=== PATIENT | female | born 1970 | race Caucasian/White ===

== ENCOUNTER 2019-09-03 08:48 | Emergency (ER) | payer OTHER, SELFPAY ==
[2019-09-03 08:54] VITALS: BP 195/103; PULSE 95; RESP 14; TEMP 37.9; O2SAT 99
--- NOTE | 2019-09-03 09:10 | ED.URI ---
HPI - URI/Sore Throat General Chief Complaint: Upper Respiratory Infection Stated Complaint: sinus infection Time Seen by Provider: 09/03/19 09:10 Source: patient and RN notes reviewed Mode of arrival: ambulatory Limitations: no limitations History of Present Illness HPI Narrative: This is a 49 years old female presented office for evaluation of possible sinus infection. Symptoms began 10-day+ with worsening for the last 3-day. Symptoms include head congestion, ear pain, sore throat, and cough. Denies fever at home however she felt achy and malaise. Admits to smoking. Related Data Home Medications Medication Instructions Recorded Confirmed duloxetine 60 mg PO DAILY 09/03/19 09/03/19 nabumetone 75 mg PO DAILY 09/03/19 09/03/19 trazodone 100 mg PO DAILY 09/03/19 09/03/19 Allergies Allergy/AdvReac Type Severity Reaction Status Date / Time cephalexin Allergy Anaphylaxis Verified 02/16/19 10:59 Review of Systems Review of Systems: Narrative: CONSTITUTIONAL: Denies fever, chills EYES: Denies visual changes ENT: Reports head congestion, sore throat, otalgia. CARDIOVASCULAR: Denies chest pain RESPIRATORY: Denies dyspnea, wheezing. Reports cough GASTROINTESTINAL: Denies abdominal pain, nausea, vomiting GENITOURINARY: Denies urinary symptoms SKIN: Denies rash MUSCULOSKELETAL: Denies acute back pain NEUROLOGIC: Denies lightheaded PMFSH Past Medical History Medical History Anxiety and depression Fracture of left hand Osteoarthritis Surgical History Surgical History S/P rotator cuff repair Social History Social History Smoking packs per day: 0.5 Smoking cigarettes per day: 10.0 Years smoked: 30 Smoking pack-years: 15.00 Smoking status: Current every day smoker Tobacco type: cigarettes Comments At time of signature, I agree with nursing past medical, surgical, social and family history. There is no relevant family history pertinent to the presenting complaint. Exam Narrative: Exam Narrative: GENERAL: This is a well-nourished, well-developed patient, in no apparent distress. EYES: Sclera clear/white. Vision is grossly intact. EARS: External ears normal, auditory canals clear and without drainage, TMs normal without perforation. Hearing grossly intact. NOSE: External nose normal with no obvious nasal discharge, nares without redness, no rhinorrhea. THROAT: Mucous membranes moist, posterior pharynx clear. Sinus tenderness noted. NECK: Neck supple, non-tender with lymphadenopathy, masses or thyromegaly. CARDIOVASCULAR: Regular rate and rhythm without murmurs, gallops, or rubs. RESPIRATORY: Clear to auscultation. Breath sounds equal bilaterally. No wheezes, rales, or rhonchi. GASTROINTESTINAL: Abdomen soft, non-tender, nondistended. Bowel sounds are active. No hepato-splenomegaly, or palpable masses. No guarding. SKIN: warm, intact with no suspicious lesions or rash, good texture and turgor. NEURO: awake, alert, and oriented to person, place and time. There were no obvious focal neurologic abnormalities. Steady gait [place] Coma Scale Eye Opening: Spontaneous 4 [place] Coma Scale Motor: Obeys Commands 6 [place] Coma Scale Verbal: Oriented 5 Course Vital Signs Vital signs: Vital Signs Temperature 100.3 F H 09/03/19 08:54 Pulse Rate 95 09/03/19 08:54 Respiratory Rate 14 09/03/19 08:54 Blood Pressure 195/103 H 09/03/19 08:54 Pulse Oximetry 99 09/03/19 08:54 Temperature 100.3 F H 09/03/19 08:54 Pulse Rate 95 09/03/19 08:54 Respiratory Rate 14 09/03/19 08:54 Blood Pressure 195/103 H 09/03/19 08:54 Pulse Oximetry 99 09/03/19 08:54 MDM - URI/Sore Throat MDM Narrative Medical decision making narrative: Discharge instructions reviewed with patient, as well as provided in writing per nursing staff.
[2019-09-03 09:20] VITALS: BP 170/95
== END 2019-09-03 09:20 | disposition home or self-care (01) ==
PROVIDERS: Emergency Provider Nurse Practitioner; PCP Internal Medicine
DX: J00 Acute nasopharyngitis [common cold] (principal); J01.90 Acute sinusitis, unspecified; I10 Essential (primary) hypertension; F17.210 Nicotine dependence, cigarettes, uncomplicated
CPT/HCPCS: 99213; G0463

== ENCOUNTER 2022-08-29 11:03 | Emergency (ER) | payer OTHER, SELFPAY ==
[2022-08-29 11:14] VITALS: BP 171/77; PULSE 103; RESP 16; TEMP 37; O2SAT 99
--- NOTE | 2022-08-29 11:20 | ED.SKABFB ---
HPI - Skin/Abscess/Foreign Bdy General Chief complaint: Skin/Abscess/Foreign Body Stated complaint: Skin Sore/Insect Bite/Tick Source: patient and RN notes reviewed History of Present Illness HPI narrative: 52 yo F presents to ED with complaints of a tick on her right shoulder that she and her friend could not get off. Pt first noticed this tick last night. Pt presumes she may have gotten it this past weekend [place]. Denies any other symptoms including fever, chills, or vomiting. Related Data Home Medications Medication Instructions Recorded Confirmed duloxetine 60 mg capsule,delayed 60 mg PO DAILY 09/03/19 09/03/19 release nabumetone 750 mg tablet 75 mg PO DAILY 09/03/19 09/03/19 trazodone 100 mg tablet 100 mg PO DAILY 09/03/19 09/03/19 Allergies Allergy/AdvReac Type Severity Reaction Status Date / Time cephalexin Allergy Anaphylaxis Verified 02/16/19 10:59 meloxicam Allergy Unknown Verified 08/29/22 11:14 Review of Systems Review of Systems: CONSTITUTIONAL: Denies fever, chills, or sweats. EYES: Denies visual changes, redness, or discharge. ENT: Denies otalgia and sore throat CARDIOVASCULAR: Denies chest pain, palpitations, or edema. RESPIRATORY: Denies cough or dyspnea. GASTROINTESTINAL: Denies abdominal pain, nausea, vomiting, or diarrhea. GENITOURINARY: Denies dysuria or hematuria. SKIN: tick to right shoulder MUSCULOSKELETAL: Denies back pain, joint pain, or myalgia. NEUROLOGIC: Denies headache, numbness, or weakness. Pertinent positives per HPI. [facility] Past Medical History Medical History (Updated 08/29/22 @ 11:30 by Maritza Mcfadden APRN) Anxiety and depression Fracture of left hand Osteoarthritis Surgical History Surgical History S/P rotator cuff repair Social History Social History Smoking packs per day: 0.5 Smoking cigarettes per day: 10.0 Years smoked: 30 Smoking pack-years: 15.00 Smoking status: Current every day smoker Tobacco type: cigarettes Living arrangements: with family Comments At the time of my signature, I reviewed and agree with the nursing past medical, surgical, social, and family history. There is no relevant family history pertinent to the patient complaint. Exam Narrative: GENERAL: This is a well-nourished, well-developed patient, in no apparent distress. HEAD: normocephalic, atraumatic. EYES: Sclera clear/white. Vision is grossly intact. EARS: External ears normal, auditory canals clear and without drainage. Hearing grossly intact. NOSE: External nose normal with no obvious nasal discharge, nares without redness, no rhinorrhea. THROAT: Mucous membranes moist, posterior pharynx clear. NECK: Neck supple, non-tender without lymphadenopathy, masses or thyromegaly. CARDIOVASCULAR: Regular rate RESPIRATORY: No respiratory distress GASTROINTESTINAL: Abdomen soft, non-tender, nondistended. Bowel sounds are active. No hepato-splenomegaly, or palpable masses. No guarding. SKIN: tick noted to right superior shoulder NEURO: awake, alert, and oriented to person, place and time. There were no obvious focal neurologic abnormalities. EXTREMITIES: No clubbing, cyanosis, or edema. No joint tenderness, effusion, or edema noted. Course Course Level of Care: Express Care Visit Vital Signs Vital signs: Vital Signs Temperature 98.6 F 08/29/22 11:14 Pulse Rate 103 H 08/29/22 11:14 Respiratory Rate 16 08/29/22 11:14 Blood Pressure 171/77 H 08/29/22 11:14 Pulse Oximetry 99 08/29/22 11:14 Oxygen Delivery Room Air 08/29/22 11:14 Temperature 98.6 F 08/29/22 11:14 Pulse Rate 103 H 08/29/22 11:14 Respiratory Rate 16 08/29/22 11:14 Blood Pressure 171/77 H 08/29/22 11:14 Pulse Oximetry 99 08/29/22 11:14 Oxygen Delivery Room Air 08/29/22 11:14 Reviewed MDM - Skin/Abscess/Foreign Bdy
== END 2022-08-29 11:32 | disposition home or self-care (01) ==
PROVIDERS: Emergency Provider Nurse Practitioner Family; PCP Internal Medicine
DX: S40.261A Insect bite (nonvenomous) of right shoulder, initial encounter (principal); W57.XXXA Bitten or stung by nonvenomous insect and other nonvenomous arthropods, initial encounter; M19.90 Unspecified osteoarthritis, unspecified site; F17.210 Nicotine dependence, cigarettes, uncomplicated; F32.A Depression, unspecified
CPT/HCPCS: 99212; G0463

== ENCOUNTER 2023-02-16 14:41 | Emergency (ER) | payer OTHER, SELFPAY ==
[2023-02-16 14:44] VITALS: BP 166/85; PULSE 101; RESP 20; TEMP 36.7; O2SAT 97
--- NOTE | 2023-02-16 14:46 | ED.WOUNDLAC ---
HPI - Wound/Laceration General Chief Complaint: Wound/Laceration Stated Complaint: needs tetnus shot Time Seen by Provider: 02/16/23 14:55 Source: patient and RN notes reviewed Mode of arrival: ambulatory Limitations: no limitations History of Present Illness HPI narrative: 52-year-old female presents with concern for tetanus shot after a puncture wound. Reports on Friday she had a puncture wound on the palmar aspect of her right hand from a nail. Reports she has been cleaning it. She denies any redness, warmth, swelling, drainage. Reports she is not up-to-date on her tetanus vaccination. She denies decreased strength, sensation, range of motion in the hand or digits Related Data Home Medications Medication Instructions Recorded Confirmed duloxetine 60 mg capsule,delayed 60 mg PO DAILY 09/03/19 02/16/23 release losartan 100 1 tablet PO DAILY 02/16/23 02/16/23 mg-hydrochlorothiazide 25 mg tablet metformin 500 mg tablet 500 mg PO DAILY 02/16/23 02/16/23 Allergies Allergy/AdvReac Type Severity Reaction Status Date / Time cephalexin Allergy Anaphylaxis Verified 02/16/23 15:00 meloxicam Allergy Unknown Verified 02/16/23 15:00 Review of Systems Review of Systems: CONSTITUTIONAL: Denies malaise, chills, sweats, or fever. SKIN: Reports puncture wound to the right hand MUSCULOSKELETAL: Denies muscle skeletal pain, decreased musculoskeletal function NEUROLOGIC: Denies numbness, weakness All systems reviewed & are unremarkable except as noted in HPI and below PMFSH Past Medical History Medical History (Updated 02/16/23 @ 15:01 by Anabela Santiago NP) Anxiety and depression Fracture of left hand Osteoarthritis Surgical History Surgical History S/P rotator cuff repair Social History Social History Smoking packs per day: 0.5 Smoking cigarettes per day: 10.0 Years smoked: 30 Smoking pack-years: 15.00 Smoking status: Current every day smoker Tobacco type: cigarettes Living arrangements: with family Comments At time of signature, agree with nursing past medical, surgical, social and family history. There is no relevant family history pertinent to the presenting complaint Exam Narrative: GENERAL: Well-appearing, well-nourished, and in no acute distress. HEAD: Normocephalic EYES: PERRLA, conjunctivae clear NECK: Supple. CHEST: Speaks in full sentences. No respiratory distress. HEART: Regular rate and rhythm. Normal and equal peripheral pulses. EXTREMITIES: Right hand and digits of hand have normal strength and sensation. 5/5 strength with digit flexion, extension. Range of motion normal. No tenderness. Skin intact. Normal sensation of each side of finger. Normal thumb opposition. Good capillary refill and radial pulse. Distal capillary refill less than 3 seconds. Patient is right/left hand dominant SKIN: Warn, dry, intact, pink. Scabbed puncture wound noted the palmar aspect of the right hand beneath digit two without surrounding erythema, edema, warmth, induration NEURO: Alert and oriented x3. PSYCH: Normal mood and affect Course Course Emergency Course: Patient is aware of diagnosis, understands and agrees to treatment plan. Anticipatory guidance given. Patient agrees to follow-up as directed and is aware of reasons to seek care at the emergency department. Portions of this record may have been created with voice recognition software Level of Care: Express Care Visit Vital Signs Vital signs: Reviewed. MDM - Wound/Laceration MDM Narrative Medical decision making narrative: Wound explored for foreign body and copious irrigation provided with no evidence of FB. Discussed the potential of retained foreign body with the patient and signs/symptoms that should prompt the patient to immediately go to the ED for reevaluation. The laceration was identified to be [XXX] cm in
[2023-02-16] MEDS: TETANUS,DIPHTHERIA,AC PERTUSSIS ADULT (0.5 ML) BOOSTRIX IM (14:56)
[2023-02-16 15:01] VITALS: BP 166/85; PULSE 101; RESP 20; TEMP 36.7; O2SAT 97
== END 2023-02-16 15:16 | disposition home or self-care (01) ==
PROVIDERS: Emergency Provider Nurse Practitioner; PCP Internal Medicine
DX: S61.431A Puncture wound without foreign body of right hand, initial encounter (principal); W45.0XXA Nail entering through skin, initial encounter; Z23 Encounter for immunization; M19.90 Unspecified osteoarthritis, unspecified site; F17.210 Nicotine dependence, cigarettes, uncomplicated
CPT/HCPCS: 90715; 99212; G0463

== ENCOUNTER 2023-11-26 13:47 | Emergency (ER) | payer OTHER, SELFPAY ==
[2023-11-26 13:57] VITALS: BP 132/76; PULSE 103; RESP 16; TEMP 36.8; O2SAT 99
--- NOTE | 2023-11-26 14:36 | ED.GENADULT ---
HPI - General Adult General Chief complaint: Upper Respiratory Infection Stated complaint: sinus infection/bronchitis Time Seen by Provider: 11/26/23 14:36 Source: patient, RN notes reviewed and old records reviewed Mode of arrival: ambulatory Limitations: no limitations History of Present Illness HPI narrative: 53-year-old female to Express Care for complaint of sore throat, sinus pressure and pain, bilateral ear fullness, hoarseness for 10 days. Patient endorsing discomfort at 6/10 currently. Patient attempted to treat with ibuprofen and Tylenol with mild relief. Patient denies shortness of breath, difficulty swallowing, headache, fever, GI complaints , pertinent medical history. Patient able to tolerate fluids by mouth. Respirations even and nonlabored. Patient in no acute distress. Related Data Home Medications Medication Instructions Recorded Confirmed duloxetine 60 mg capsule,delayed 60 mg PO DAILY 09/03/19 11/26/23 release losartan 100 1 tablet PO DAILY 02/16/23 11/26/23 mg-hydrochlorothiazide 25 mg tablet Allergies Allergy/AdvReac Type Severity Reaction Status Date / Time cephalexin Allergy Anaphylaxis Verified 11/26/23 14:19 meloxicam Allergy Unknown Verified 11/26/23 14:19 Review of Systems Review of Systems: All systems reviewed & are unremarkable except as noted in HPI and below Constitutional: Constitutional: Reports as per HPI, Denies fever(s) and Denies headache(s) Eyes: Eyes: Reports no additional eye complaints ENT: Reports as per HPI, Reports otalgia ( Bilateral fullness), Reports hoarseness, Reports sinus pain, Reports sinus pressure and Reports sore throat Cardiovascular: Cardiovascular: Reports no additional cardiovascular complaints, Denies chest pain and Denies dyspnea Respiratory: Respiratory: Reports no additional respiratory complaints, Denies cough and Denies dyspnea Musculoskeletal: Musculoskeletal: Reports no additional musculoskeletal complaints Neurologic: Reports system reviewed and no additional complaints, except as documented Psychiatric: Psychiatric: Reports no additional psychiatric complaints PMFSH Past Medical History Medical History Anxiety and depression Fracture of left hand Osteoarthritis Surgical History Surgical History S/P rotator cuff repair Social History Social History Smoking packs per day: 0.5 Smoking cigarettes per day: 10.0 Years smoked: 30 Smoking pack-years: 15.00 Smoking status: Current every day smoker Tobacco type: cigarettes Living arrangements: with family Comments At the time of my signature, I reviewed and agree with the nursing past medical, surgical, social, and family history. There is no relevant family history pertinent to the patient complaint. Exam Const: General: cooperative, no acute distress, well developed, alert, ill appearing acutely, tired appearing, uncomfortable, well groomed and well nourished Nutritional Appearance: well nourished Orientation/consciousness: patient oriented x3 Limitations: no limitations HENMT: Head: normal to inspection Ears: external ears normal and TM abnormal erythematous bilateral, with fluid behind the TM bilateral ( purulent) and with loss of landmarks bilateral Face/Nose/Sinus: Normal external nose present, Abnormal mucous membranes and turbinates present boggy and erythematous, normal facial exam, No erythema and No edema Face and sinus: normal facial exam, no erythema and no edema Mouth: Yes Normal oral and palatal mucosa present Eyes: General: appearance normal, both eyes and all related structures Neck: Neck: normal visual inspection, full ROM and no meningeal signs Lymphatic: lymphadenopathy Chest: Chest palpation & inspection: normal inspection of the chest Resp: Effort & Ins
== END 2023-11-26 14:45 | disposition home or self-care (01) ==
PROVIDERS: Emergency Provider Nurse Practitioner Family; PCP Internal Medicine
DX: J32.9 Chronic sinusitis, unspecified (principal); F17.210 Nicotine dependence, cigarettes, uncomplicated; M19.90 Unspecified osteoarthritis, unspecified site
CPT/HCPCS: 99213; G0463

== ENCOUNTER 2024-04-29 16:46 | Emergency (ER) | payer OTHER, SELFPAY ==
--- OUTSIDE RECORDS SUMMARY | 2024-04-29 16:48 | XMS_ITS | Patient Health Summary ---
Author Organization [facility] [employer] Address [address] [place] [address] Care Team Providers Care Powerbuilder Name Role Phone Charlie Abreu MD Primary Care Provider [phone] Note from [facility] [place],non-owned Affiliates and Associated Physician Practices is amultiple site organization consisting of ambulatory clinics and hospital sitesin [place], [place], [place]. This disclosure is being madepursuant to the Care Everywhere program and may not contain all information available regarding this patient. Last updated 17.[facility] [employer] Allergies * Allergy(Itching,Rash) -Medium Criticality * Uncaria Tomentosa, Cats Claw(Other) -Low Criticality * Cephalexin(Anaphylaxis) -High Criticality * Meloxicam(Other,Palpitations) -High Criticality * Pollen Extract(Itching) -Low Criticality Medications * Be aware that medications may not be up to date on this document. Alwaysverify current medications with the patient. 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 Essential (primary) hypertension 10/04/2014 Polyosteoarthritis 10/04/2014 Major depressive disorder, single episode 2014 Social History Tobacco Use Types Packs/Day Years Used Date Smoking Tobacco: Every Day Cigarettes 0.5 30 Smokeless Tobacco: Never Alcohol Use Standard Drinks/Week Comments No 0 (1 standard drink = 0.6 oz pur e alcohol) Sex and Gender Information Value Date Recorded Sex Assigned at Not on file Gender Identity Not on file Sexual Orientation Not on file Last Filed Vital Signs Vital Sign Reading Time Taken Comments Blood Pressure 190/90 04/28/2019 12:55 PM [employer]IM 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 Pulse 100 04/28/2019 12:55 PM BRIM 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 Temperature 36.4 ??C (97.5 ??F) 04/28/2019 12:[address] Respiratory Rate 16 05/18/2018 1:58 PM [employer] 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 Oxygen Saturation 100% 05/18/2018 1:58 PM BR[employer] 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 Inhaled Oxygen Concentration - - Weight 73 kg (161 lb) 04/28/2019 12:55 PM BRIM 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 Height 166.4 cm (5' 5.5 ) 04/28/2019 12:55 PM CS T Body Mass Index 26.38 04/28/2019 12:55 PM [employer]IM 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 Procedures * XR SHOULDER RIGHT 2VW OR MORE(Performed 04/20/2018) Performed for Right shoulder pain, unspecified chronicity * XR PELVIS W LEFT HIP 2VW(Performed 10/14/2014) * XR LUMBAR SPINE 2 OR 3VW(Performed 10/14/2014) * XR CERVICAL SPINE 2 OR 3VW(Performed 10/14/2014) * XR SHOULDER LEFT 2VW OR MORE(Performed 10/14/2014) * XR SHOULDER RIGHT 2VW OR MORE(Performed 10/14/2014) * XR PELVIS W RIGHT HIP 2VW(Performed 10/14/2014) * CYCLIC CITRULLINATED PEPTIDE(CCP) AB IGG(Performed 10/14/2014) * TSH(Performed 10/14/2014) * C-REACTIVE PROTEIN(Performed 10/14/2014) * RHEUMATOID FACTOR BLOOD QUANTITATIVE(Performed 10/14/2014) * COMPREHENSIVE METABOLIC PANEL(Performed 10/14/2014) * ERYTHROCYTE SEDIMENTATION RATE(Performed 10/14/2014) * CBC W AUTO DIFFERENTIAL(Performed 10/14/2014) * CBC W AUTO DIFFERENTIAL(Performed 10/14/2014) Results * XR SHOULDER RIGHT 2VW OR MORE (04/20/2018 10:57 AM BRIM 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) Only the most recent of2 resultswithin the time period is included. Anatomical Region Laterality Modality Upper Extremity Radiographic [place] ging 04/20/2018 12:0 3 PM BRIM 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 Impressions 04/20/2018 12:05 PM BRIM 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 IMPRESSION: Degenerative changes. This report was electronically signed by RAD UMANA MD ??on 04/20/2018 12:05 PM . Narrative 04/20/2018 12:05 PM BRIM 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 Exam: ??XR SHOULDER RIGHT 3 view History: ??Pain Comparison: 10/14/2014 Findings: No acute fracture or dislocation is seen. Mild degenerative change is noted at the acromioclavicular and glenohumeral joints. The contour of the distal clavicle suggests partial resection. There is bony irregularity of the greater tuberosity with several lucencies suggesting rotator cuff tendinopathy and/or prior surgery. Procedure Note Rad Umana MD - 04/20/2018 Exam: XR SHOULDER RIGHT 3 view History: Pain Comparison: 10/14/2014 Findings: No acute fracture or dislocation is seen. Mild degenerative change is noted at the acromioclavicular and glenohumeral joints. The contour ofthe distal clavicle suggests partial resection. There is bony irregularityof the greater tuberosity with several lucencies suggesting rotator cuff tendinopathy and/or prior surgery. IMPRESSION: Degenerative changes. This report was electronically signed by RAD UMANA MD on04/20/2018 12:05 PM . Floyd Reese III, MD DIAGNOSTIC IM AGING ORDERABLES * XR PELVIS W RIGHT HIP 2VW (10/14/2014 3:04 PM CDT) Anatomical Region Laterality Modality Other Impressions 10/14/2014 4:15 PM CDT Impression: 1. Right shoulder demonstrates mild osteoarthritis, and changes suggestive of chronic rotator cuff tendinopathy. 2. Left shoulder demonstrates minimal arthritis. 3. Right and left hip x-rays demonstrate no significant arthritis. Enthesopathy is noted at both greater trochanters. 4. Cervical spine x-rays demonstrate mild to moderate degenerative disc disease. 5. Lumbar spine x-rays demonstrate mild degenerative disc disease. This report was electronically signed by RAD UMANA MD ??on 10/14/2014 4:15 PM . Narrative 10/14/2014 4:15 PM CDT Exam: 1. XR SPINE LUMBAR 2 OR 3 VW, 2. XR SPINE CERVICAL 2 OR 3 VIEWS, 3. XR SHOULDER LEFT 2 VW MIN, 4. XR SHOULDER RIGHT 2 VW MIN, 5. XR HIP LEFT 2+ VW, 6. XR HIP RIGHT 2+ VW History: ??Joint pain Comparison: None available. Findings: Right shoulder: There is no acute fracture. There is mild glenohumeral and acromioclavicular osteoarthritis. There is moderate bony irregularity of the greater tuberosity which may reflect chronic rotator cuff tendinopathy. No erosions are seen. Bone mineralization is normal. Left shoulder: There is no acute fracture. The joint spaces are normal. There are small cysts along the anterior margin of the glenoid. There is no significant acromioclavicular arthritis. No definite erosions are seen. Bone mineralization is normal. Right hip: There is no acute fracture or dislocation. The joint space is normal. There is no significant arthritis. No erosions are seen. Bone mineralization is normal. There is moderate enthesopathy at the greater trochanter. The right sacroiliac joint and pubic symphysis are intact. Left hip: There is no acute fracture or dislocation. The joint space is normal. There is a tiny os acetabula. No erosions are seen. Bone mineralization is normal. There is mild to moderate greater trochanter enthesopathy. Left sacroiliac joint is intact. Cervical spine: There is reversal of the cervical lordosis in the lower cervical spine. No fracture or subluxation is present. There is mild degenerative disc disease at C4-5, moderate degenerative disc disease at C5-6, and mild degenerative disc disease at C6-7. The prevertebral soft tissues are normal. Bone mineralization is normal. Lumbar spine: The lumbar lordosis is normal. There is no fracture or subluxation. The intervertebral disc spaces are normal. There are scattered small anterior osteophytes, and lateral osteophytes versus non-marginal syndesmophytes at several levels. The facets appear normal. Focal calcification anterior to the L3 vertebral body could represent atherosclerotic aortic calcification, or other nonspecific soft tissue calcification. Bone mineralization is normal. Procedure Note Rad Umana MD - 06/28/2017 Exam: 1. XR SPINE LUMBAR 2 OR 3 VW, 2. XR SPINE CERVICAL 2 OR 3 VIEWS, 3. XR SHOULDER LEFT 2 VW MIN, 4. XR SHOULDER RIGHT 2 VW MIN, 5. XR HIP LEFT 2+ VW, 6. XR HIP RIGHT 2+ VW History: Joint pain Comparison: None available. Findings: Right shoulder: There is no acute fracture. There is mild glenohumeral andacromioclavicular osteoarthritis. There is moderate bony irregularity ofthe greater tuberosity which may reflect chronic rotator cufftendinopathy. No erosions are seen. Bone mineralization is normal. Left shoulder: There is no acute fracture. The joint spaces are normal. There are smallcysts along the anterior margin of the glenoid. There is no significantacromioclavicular arthritis. No definite erosions are seen. Bonemineralization is normal. Right hip: There is no acute fracture or dislocation. The joint space is normal.There is no significant arthritis. No erosions are seen. Bonemineralization is normal. There is moderate enthesopathy at the greatertrochanter. The right sacroiliac joint and pubic symphysis are intact. Left hip: There is no acute fracture or dislocation. The joint space is normal.There is a tiny os acetabula. No erosions are seen. Bone mineralization isnormal. There is mild to moderate greater trochanter enthesopathy. Leftsacroiliac joint is intact. Cervical spine: There is reversal of the cervical lordosis in the lower cervical spine. Nofracture or subluxation is present. There is mild degenerative discdisease at C4-5, moderate degenerative disc disease at C5-6, and milddegenerative disc disease at C6-7. The prevertebral soft tissues are normal. Bone mineralization is normal. Lumbar spine: The lumbar lordosis is normal. There is no fracture or subluxation. Theintervertebral disc spaces are normal. There are scattered small anteriorosteophytes, and lateral osteophytes versus non-marginal syndesmophytes atseveral levels. The facets appear normal. Focal calcification anterior to the L3 vertebral body couldrepresent atherosclerotic aortic calcification, or other nonspecific softtissue calcification. Bone mineralization is normal. IMPRESSION Impression: 1. Right shoulder demonstrates mild osteoarthritis, and changes suggestiveof chronic rotator cuff tendinopathy. 2. Left shoulder demonstrates minimal arthritis. 3. Right and left hip x-rays demonstrate no significant arthritis.Enthesopathy is noted at both greater trochanters. 4. Cervical spine x-rays demonstrate mild to moderate degenerative discdisease. 5. Lumbar spine x-rays demonstrate mild degenerative disc disease. This report was electronically signed by RAD UMANA MD on 10/14/20144:15 PM . Sugar Rodriguez MD DIAGNOSTIC IMAGING ORDERABLES * XR PELVIS W LEFT HIP 2VW (10/14/2014 3:04 PM CDT) Anatomical Region Laterality Modality Other Impressions 10/14/2014 4:15 PM CDT Impression: 1. Right shoulder demonstrates mild osteoarthritis, and changes suggestive of chronic rotator cuff tendinopathy. 2. Left shoulder demonstrates minimal arthritis. 3. Right and left hip x-rays demonstrate no significant arthritis. Enthesopathy is noted at both greater trochanters. 4. Cervical spine x-rays demonstrate mild to moderate degenerative disc disease. 5. Lumbar spine x-rays demonstrate mild degenerative disc disease. This report was electronically signed by RAD UMANA MD ??on 10/14/2014 4:15 PM . Narrative 10/14/2014 4:15 PM CDT Exam: 1. XR SPINE LUMBAR 2 OR 3 VW, 2. XR SPINE CERVICAL 2 OR 3 VIEWS, 3. XR SHOULDER LEFT 2 VW MIN, 4. XR SHOULDER RIGHT 2 VW MIN, 5. XR HIP LEFT 2+ VW, 6. XR HIP RIGHT 2+ VW History: ??Joint pain Comparison: None available. Findings: Right shoulder: There is no acute fracture. There is mild glenohumeral and acromioclavicular osteoarthritis. There is moderate bony irregularity of the greater tuberosity which may reflect chronic rotator cuff tendinopathy. No erosions are seen. Bone mineralization is normal. Left shoulder: There is no acute fracture. The joint spaces are normal. There are small cysts along the anterior margin of the glenoid. There is no significant acromioclavicular arthritis. No definite erosions are seen. Bone mineralization is normal. Right hip: There is no acute fracture or dislocation. The joint space is normal. There is no significant arthritis. No erosions are seen. Bone mineralization is normal. There is moderate enthesopathy at the greater trochanter. The right sacroiliac joint and pubic symphysis are intact. Left hip: There is no acute fracture or dislocation. The joint space is normal. There is a tiny os acetabula. No erosions are seen. Bone mineralization is normal. There is mild to moderate greater trochanter enthesopathy. Left sacroiliac joint is intact. Cervical spine: There is reversal of the cervical lordosis in the lower cervical spine. No fracture or subluxation is present. There is mild degenerative disc disease at C4-5, moderate degenerative disc disease at C5-6, and mild degenerative disc disease at C6-7. The prevertebral soft tissues are normal. Bone mineralization is normal. Lumbar spine: The lumbar lordosis is normal. There is no fracture or subluxation. The intervertebral disc spaces are normal. There are scattered small anterior osteophytes, and lateral osteophytes versus non-marginal syndesmophytes at several levels. The facets appear normal. Focal calcification anterior to the L3 vertebral body could represent atherosclerotic aortic calcification, or other nonspecific soft tissue calcification. Bone mineralization is normal. Procedure Note Rad Umana MD - 06/28/2017 Exam: 1. XR SPINE LUMBAR 2 OR 3 VW, 2. XR SPINE CERVICAL 2 OR 3 VIEWS, 3. XR SHOULDER LEFT 2 VW MIN, 4. XR SHOULDER RIGHT 2 VW MIN, 5. XR HIP LEFT 2+ VW, 6. XR HIP RIGHT 2+ VW History: Joint pain Comparison: None available. Findings: Right shoulder: There is no acute fracture. There is mild glenohumeral andacromioclavicular osteoarthritis. There is moderate bony irregularity ofthe greater tuberosity which may reflect chronic rotator cufftendinopathy. No erosions are seen. Bone mineralization is normal. Left shoulder: There is no acute fracture. The joint spaces are normal. There are smallcysts along the anterior margin of the glenoid. There is no significantacromioclavicular arthritis. No definite erosions are seen. Bonemineralization is normal. Right hip: There is no acute fracture or dislocation. The joint space is normal.There is no significant arthritis. No erosions are seen. Bonemineralization is normal. There is moderate enthesopathy at the greatertrochanter. The right sacroiliac joint and pubic symphysis are intact. Left hip: There is no acute fracture or dislocation. The joint space is normal.There is a tiny os acetabula. No erosions are seen. Bone mineralization isnormal. There is mild to moderate greater trochanter enthesopathy. Leftsacroiliac joint is intact. Cervical spine: There is reversal of the cervical lordosis in the lower cervical spine. Nofracture or subluxation is present. There is mild degenerative discdisease at C4-5, moderate degenerative disc disease at C5-6, and milddegenerative disc disease at C6-7. The prevertebral soft tissues are normal. Bone mineralization is normal. Lumbar spine: The lumbar lordosis is normal. There is no fracture or subluxation. Theintervertebral disc spaces are normal. There are scattered small anteriorosteophytes, and lateral osteophytes versus non-marginal syndesmophytes atseveral levels. The facets appear normal. Focal calcification anterior to the L3 vertebral body couldrepresent atherosclerotic aortic calcification, or other nonspecific softtissue calcification. Bone mineralization is normal. IMPRESSION Impression: 1. Right shoulder demonstrates mild osteoarthritis, and changes suggestiveof chronic rotator cuff tendinopathy. 2. Left shoulder demonstrates minimal arthritis. 3. Right and left hip x-rays demonstrate no significant arthritis.Enthesopathy is noted at both greater trochanters. 4. Cervical spine x-rays demonstrate mild to moderate degenerative discdisease. 5. Lumbar spine x-rays demonstrate mild degenerative disc disease. This report was electronically signed by RAD UMANA MD on 10/14/20144:15 PM . Sugar Rodriguez MD DIAGNOSTIC IMAGING ORDERABLES * XR SHOULDER LEFT 2VW OR MORE (10/14/2014 3:04 PM CDT) Anatomical Region Laterality Modality Upper Extremity Other Impressions 10/14/2014 4:15 PM CDT Impression: 1. Right shoulder demonstrates mild osteoarthritis, and changes suggestive of chronic rotator cuff tendinopathy. 2. Left shoulder demonstrates minimal arthritis. 3. Right and left hip x-rays demonstrate no significant arthritis. Enthesopathy is noted at both greater trochanters. 4. Cervical spine x-rays demonstrate mild to moderate degenerative disc disease. 5. Lumbar spine x-rays demonstrate mild degenerative disc disease. This report was electronically signed by RAD UMANA MD ??on 10/14/2014 4:15 PM . Narrative 10/14/2014 4:15 PM CDT Exam: 1. XR SPINE LUMBAR 2 OR 3 VW, 2. XR SPINE CERVICAL 2 OR 3 VIEWS, 3. XR SHOULDER LEFT 2 VW MIN, 4. XR SHOULDER RIGHT 2 VW MIN, 5. XR HIP LEFT 2+ VW, 6. XR HIP RIGHT 2+ VW History: ??Joint pain Comparison: None available. Findings: Right shoulder: There is no acute fracture. There is mild glenohumeral and acromioclavicular osteoarthritis. There is moderate bony irregularity of the greater tuberosity which may reflect chronic rotator cuff tendinopathy. No erosions are seen. Bone mineralization is normal. Left shoulder: There is no acute fracture. The joint spaces are normal. There are small cysts along the anterior margin of the glenoid. There is no significant acromioclavicular arthritis. No definite erosions are seen. Bone mineralization is normal. Right hip: There is no acute fracture or dislocation. The joint space is normal. There is no significant arthritis. No erosions are seen. Bone mineralization is normal. There is moderate enthesopathy at the greater trochanter. The right sacroiliac joint and pubic symphysis are intact. Left hip: There is no acute fracture or dislocation. The joint space is normal. There is a tiny os acetabula. No erosions are seen. Bone mineralization is normal. There is mild to moderate greater trochanter enthesopathy. Left sacroiliac joint is intact. Cervical spine: There is reversal of the cervical lordosis in the lower cervical spine. No fracture or subluxation is present. There is mild degenerative disc disease at C4-5, moderate degenerative disc disease at C5-6, and mild degenerative disc disease at C6-7. The prevertebral soft tissues are normal. Bone mineralization is normal. Lumbar spine: The lumbar lordosis is normal. There is no fracture or subluxation. The intervertebral disc spaces are normal. There are scattered small anterior osteophytes, and lateral osteophytes versus non-marginal syndesmophytes at several levels. The facets appear normal. Focal calcification anterior to the L3 vertebral body could represent atherosclerotic aortic calcification, or other nonspecific soft tissue calcification. Bone mineralization is normal. Procedure Note Rad Umana MD - 06/28/2017 Exam: 1. XR SPINE LUMBAR 2 OR 3 VW, 2. XR SPINE CERVICAL 2 OR 3 VIEWS, 3. XR SHOULDER LEFT 2 VW MIN, 4. XR SHOULDER RIGHT 2 VW MIN, 5. XR HIP LEFT 2+ VW, 6. XR HIP RIGHT 2+ VW History: Joint pain Comparison: None available. Findings: Right shoulder: There is no acute fracture. There is mild glenohumeral andacromioclavicular osteoarthritis. There is moderate bony irregularity ofthe greater tuberosity which may reflect chronic rotator cufftendinopathy. No erosions are seen. Bone mineralization is normal. Left shoulder: There is no acute fracture. The joint spaces are normal. There are smallcysts along the anterior margin of the glenoid. There is no significantacromioclavicular arthritis. No definite erosions are seen. Bonemineralization is normal. Right hip: There is no acute fracture or dislocation. The joint space is normal.There is no significant arthritis. No erosions are seen. Bonemineralization is normal. There is moderate enthesopathy at the greatertrochanter. The right sacroiliac joint and pubic symphysis are intact. Left hip: There is no acute fracture or dislocation. The joint space is normal.There is a tiny os acetabula. No erosions are seen. Bone mineralization isnormal. There is mild to moderate greater trochanter enthesopathy. Leftsacroiliac joint is intact. Cervical spine: There is reversal of the cervical lordosis in the lower cervical spine. Nofracture or subluxation is present. There is mild degenerative discdisease at C4-5, moderate degenerative disc disease at C5-6, and milddegenerative disc disease at C6-7. The prevertebral soft tissues are normal. Bone mineralization is normal. Lumbar spine: The lumbar lordosis is normal. There is no fracture or subluxation. Theintervertebral disc spaces are normal. There are scattered small anteriorosteophytes, and lateral osteophytes versus non-marginal syndesmophytes atseveral levels. The facets appear normal. Focal calcification anterior to the L3 vertebral body couldrepresent atherosclerotic aortic calcification, or other nonspecific softtissue calcification. Bone mineralization is normal. IMPRESSION Impression: 1. Right shoulder demonstrates mild osteoarthritis, and changes suggestiveof chronic rotator cuff tendinopathy. 2. Left shoulder demonstrates minimal arthritis. 3. Right and left hip x-rays demonstrate no significant arthritis.Enthesopathy is noted at both greater trochanters. 4. Cervical spine x-rays demonstrate mild to moderate degenerative discdisease. 5. Lumbar spine x-rays demonstrate mild degenerative disc disease. This report was electronically signed by RAD UMANA MD on 10/14/20144:15 PM . Sugar Rodriguez MD DIAGNOSTIC IMAGING ORDERABLES * XR LUMBAR SPINE 2 OR 3VW (10/14/2014 3:04 PM CDT) Anatomical Region Laterality Modality Spine Other Impressions 10/14/2014 4:15 PM CDT Impression: 1. Right shoulder demonstrates mild osteoarthritis, and changes suggestive of chronic rotator cuff tendinopathy. 2. Left shoulder demonstrates minimal arthritis. 3. Right and left hip x-rays demonstrate no significant arthritis. Enthesopathy is noted at both greater trochanters. 4. Cervical spine x-rays demonstrate mild to moderate degenerative disc disease. 5. Lumbar spine x-rays demonstrate mild degenerative disc disease. This report was electronically signed by RAD UMANA MD ??on 10/14/2014 4:15 PM . Narrative 10/14/2014 4:15 PM CDT Exam: 1. XR SPINE LUMBAR 2 OR 3 VW, 2. XR SPINE CERVICAL 2 OR 3 VIEWS, 3. XR SHOULDER LEFT 2 VW MIN, 4. XR SHOULDER RIGHT 2 VW MIN, 5. XR HIP LEFT 2+ VW, 6. XR HIP RIGHT 2+ VW History: ??Joint pain Comparison: None available. Findings: Right shoulder: There is no acute fracture. There is mild glenohumeral and acromioclavicular osteoarthritis. There is moderate bony irregularity of the greater tuberosity which may reflect chronic rotator cuff tendinopathy. No erosions are seen. Bone mineralization is normal. Left shoulder: There is no acute fracture. The joint spaces are normal. There are small cysts along the anterior margin of the glenoid. There is no significant acromioclavicular arthritis. No definite erosions are seen. Bone mineralization is normal. Right hip: There is no acute fracture or dislocation. The joint space is normal. There is no significant arthritis. No erosions are seen. Bone mineralization is normal. There is moderate enthesopathy at the greater trochanter. The right sacroiliac joint and pubic symphysis are intact. Left hip: There is no acute fracture or dislocation. The joint space is normal. There is a tiny os acetabula. No erosions are seen. Bone mineralization is normal. There is mild to moderate greater trochanter enthesopathy. Left sacroiliac joint is intact. Cervical spine: There is reversal of the cervical lordosis in the lower cervical spine. No fracture or subluxation is present. There is mild degenerative disc disease at C4-5, moderate degenerative disc disease at C5-6, and mild degenerative disc disease at C6-7. The prevertebral soft tissues are normal. Bone mineralization is normal. Lumbar spine: The lumbar lordosis is normal. There is no fracture or subluxation. The intervertebral disc spaces are normal. There are scattered small anterior osteophytes, and lateral osteophytes versus non-marginal syndesmophytes at several levels. The facets appear normal. Focal calcification anterior to the L3 vertebral body could represent atherosclerotic aortic calcification, or other nonspecific soft tissue calcification. Bone mineralization is normal. Procedure Note Rad Umana MD - 06/28/2017 Exam: 1. XR SPINE LUMBAR 2 OR 3 VW, 2. XR SPINE CERVICAL 2 OR 3 VIEWS, 3. XR SHOULDER LEFT 2 VW MIN, 4. XR SHOULDER RIGHT 2 VW MIN, 5. XR HIP LEFT 2+ VW, 6. XR HIP RIGHT 2+ VW History: Joint pain Comparison: None available. Findings: Right shoulder: There is no acute fracture. There is mild glenohumeral andacromioclavicular osteoarthritis. There is moderate bony irregularity ofthe greater tuberosity which may reflect chronic rotator cufftendinopathy. No erosions are seen. Bone mineralization is normal. Left shoulder: There is no acute fracture. The joint spaces are normal. There are smallcysts along the anterior margin of the glenoid. There is no significantacromioclavicular arthritis. No definite erosions are seen. Bonemineralization is normal. Right hip: There is no acute fracture or dislocation. The joint space is normal.There is no significant arthritis. No erosions are seen. Bonemineralization is normal. There is moderate enthesopathy at the greatertrochanter. The right sacroiliac joint and pubic symphysis are intact. Left hip: There is no acute fracture or dislocation. The joint space is normal.There is a tiny os acetabula. No erosions are seen. Bone mineralization isnormal. There is mild to moderate greater trochanter enthesopathy. Leftsacroiliac joint is intact. Cervical spine: There is reversal of the cervical lordosis in the lower cervical spine. Nofracture or subluxation is present. There is mild degenerative discdisease at C4-5, moderate degenerative disc disease at C5-6, and milddegenerative disc disease at C6-7. The prevertebral soft tissues are normal. Bone mineralization is normal. Lumbar spine: The lumbar lordosis is normal. There is no fracture or subluxation. Theintervertebral disc spaces are normal. There are scattered small anteriorosteophytes, and lateral osteophytes versus non-marginal syndesmophytes atseveral levels. The facets appear normal. Focal calcification anterior to the L3 vertebral body couldrepresent atherosclerotic aortic calcification, or other nonspecific softtissue calcification. Bone mineralization is normal. IMPRESSION Impression: 1. Right shoulder demonstrates mild osteoarthritis, and changes suggestiveof chronic rotator cuff tendinopathy. 2. Left shoulder demonstrates minimal arthritis. 3. Right and left hip x-rays demonstrate no significant arthritis.Enthesopathy is noted at both greater trochanters. 4. Cervical spine x-rays demonstrate mild to moderate degenerative discdisease. 5. Lumbar spine x-rays demonstrate mild degenerative disc disease. This report was electronically signed by RAD UMANA MD on 10/14/20144:15 PM . Sugar Rodriguez MD DIAGNOSTIC IMAGING ORDERABLES * XR CERVICAL SPINE 2 OR 3VW (10/14/2014 3:04 PM CDT) Anatomical Region Laterality Modality Spine Other Impressions 10/14/2014 4:15 PM CDT Impression: 1. Right shoulder demonstrates mild osteoarthritis, and changes suggestive of chronic rotator cuff tendinopathy. 2. Left shoulder demonstrates minimal arthritis. 3. Right and left hip x-rays demonstrate no significant arthritis. Enthesopathy is noted at both greater trochanters. 4. Cervical spine x-rays demonstrate mild to moderate degenerative disc disease. 5. Lumbar spine x-rays demonstrate mild degenerative disc disease. This report was electronically signed by RAD UMANA MD ??on 10/14/2014 4:15 PM . Narrative 10/14/2014 4:15 PM CDT Exam: 1. XR SPINE LUMBAR 2 OR 3 VW, 2. XR SPINE CERVICAL 2 OR 3 VIEWS, 3. XR SHOULDER LEFT 2 VW MIN, 4. XR SHOULDER RIGHT 2 VW MIN, 5. XR HIP LEFT 2+ VW, 6. XR HIP RIGHT 2+ VW History: ??Joint pain Comparison: None available. Findings: Right shoulder: There is no acute fracture. There is mild glenohumeral and acromioclavicular osteoarthritis. There is moderate bony irregularity of the greater tuberosity which may reflect chronic rotator cuff tendinopathy. No erosions are seen. Bone mineralization is normal. Left shoulder: There is no acute fracture. The joint spaces are normal. There are small cysts along the anterior margin of the glenoid. There is no significant acromioclavicular arthritis. No definite erosions are seen. Bone mineralization is normal. Right hip: There is no acute fracture or dislocation. The joint space is normal. There is no significant arthritis. No erosions are seen. Bone mineralization is normal. There is moderate enthesopathy at the greater trochanter. The right sacroiliac joint and pubic symphysis are intact. Left hip: There is no acute fracture or dislocation. The joint space is normal. There is a tiny os acetabula. No erosions are seen. Bone mineralization is normal. There is mild to moderate greater trochanter enthesopathy. Left sacroiliac joint is intact. Cervical spine: There is reversal of the cervical lordosis in the lower cervical spine. No fracture or subluxation is present. There is mild degenerative disc disease at C4-5, moderate degenerative disc disease at C5-6, and mild degenerative disc disease at C6-7. The prevertebral soft tissues are normal. Bone mineralization is normal. Lumbar spine: The lumbar lordosis is normal. There is no fracture or subluxation. The intervertebral disc spaces are normal. There are scattered small anterior osteophytes, and lateral osteophytes versus non-marginal syndesmophytes at several levels. The facets appear normal. Focal calcification anterior to the L3 vertebral body could represent atherosclerotic aortic calcification, or other nonspecific soft tissue calcification. Bone mineralization is normal. Procedure Note Rad Umana MD - 06/28/2017 Exam: 1. XR SPINE LUMBAR 2 OR 3 VW, 2. XR SPINE CERVICAL 2 OR 3 VIEWS, 3. XR SHOULDER LEFT 2 VW MIN, 4. XR SHOULDER RIGHT 2 VW MIN, 5. XR HIP LEFT 2+ VW, 6. XR HIP RIGHT 2+ VW History: Joint pain Comparison: None available. Findings: Right shoulder: There is no acute fracture. There is mild glenohumeral andacromioclavicular osteoarthritis. There is moderate bony irregularity ofthe greater tuberosity which may reflect chronic rotator cufftendinopathy. No erosions are seen. Bone mineralization is normal. Left shoulder: There is no acute fracture. The joint spaces are normal. There are smallcysts along the anterior margin of the glenoid. There is no significantacromioclavicular arthritis. No definite erosions are seen. Bonemineralization is normal. Right hip: There is no acute fracture or dislocation. The joint space is normal.There is no significant arthritis. No erosions are seen. Bonemineralization is normal. There is moderate enthesopathy at the greatertrochanter. The right sacroiliac joint and pubic symphysis are intact. Left hip: There is no acute fracture or dislocation. The joint space is normal.There is a tiny os acetabula. No erosions are seen. Bone mineralization isnormal. There is mild to moderate greater trochanter enthesopathy. Leftsacroiliac joint is intact. Cervical spine: There is reversal of the cervical lordosis in the lower cervical spine. Nofracture or subluxation is present. There is mild degenerative discdisease at C4-5, moderate degenerative disc disease at C5-6, and milddegenerative disc disease at C6-7. The prevertebral soft tissues are normal. Bone mineralization is normal. Lumbar spine: The lumbar lordosis is normal. There is no fracture or subluxation. Theintervertebral disc spaces are normal. There are scattered small anteriorosteophytes, and lateral osteophytes versus non-marginal syndesmophytes atseveral levels. The facets appear normal. Focal calcification anterior to the L3 vertebral body couldrepresent atherosclerotic aortic calcification, or other nonspecific softtissue calcification. Bone mineralization is normal. IMPRESSION Impression: 1. Right shoulder demonstrates mild osteoarthritis, and changes suggestiveof chronic rotator cuff tendinopathy. 2. Left shoulder demonstrates minimal arthritis. 3. Right and left hip x-rays demonstrate no significant arthritis.Enthesopathy is noted at both greater trochanters. 4. Cervical spine x-rays demonstrate mild to moderate degenerative discdisease. 5. Lumbar spine x-rays demonstrate mild degenerative disc disease. This report was electronically signed by RAD UMANA MD on 10/14/20144:15 PM . Sugar Rodriguez MD DIAGNOSTIC IMAGING ORDERABLES * RHEUMATOID FACTOR BLOOD QUANTITATIVE (10/14/2014 2:30 PM CDT) Rheumatoid Factor <15 <30 IU/mL [facility] Blood specimen (specimen) BLOOD SPECIMEN / Unknown 10/14/2014 2:30 PM CDT 10/14/2014 3:01 PM CDT Sugar Rodriguez MD LAB - CHEM ISTRY ORDERABLES [address] [phone] * C-REACTIVE PROTEIN (10/14/2014 2:30 PM CDT) C-Reactive Protein 0.5 <=0.5 mg/dL [facility] Blood specimen (specimen) BLOOD SPECIMEN / Unknown 10/14/2014 2:30 PM CDT 10/14/2014 3:01 PM CDT Sugar Rodriguez MD LAB - CHEM ISTRY ORDERABLES Performing Organization Address [facility] Co de Phone Number [address] [phone] * CYCLIC CITRUL PEPTIDE AB IGG (CCP) (10/14/2014 2:30 PM CDT) [facility] CCP Antibody IgG 1.3 <5.0 U/mL [facility] Blood specimen (specimen) BLOOD SPECIMEN / Unknown 10/14/2014 2:30 PM CDT 10/14/2014 3:01 PM CDT Sugar Rodriguez MD LAB - CHEM ISTRY ORDERABLES Performing Organization Address [facility] Co de Phone Number [address] [phone] * ERYTHROCYTE SEDIMENTATION RATE (10/14/2014 2:30 PM CDT) [facility] Erythrocyte Sedimentation Rate Westergren 14 0 - 20 MM/HR [facility] Blood specimen (specimen) BLOOD SPECIMEN / Unknown 10/14/2014 2:30 PM CDT 10/14/2014 3:01 PM CDT Sugar Rodriguez MD LAB - OC TOLOGY ORDERABLES Performing Organization Address [facility] Co de Phone Number [address] [phone] * (ABNORMAL) CBC W AUTO DIFFERENTIAL (10/14/2014 2:30 PM CDT) Only the most recent of2 resultswithin the time period is included. [facility] WBC 8.2 3.5 - 10.5 10? 3 /uL [facility] RBC 4.37 3.90 - 5.00 10? 6 /uL [facility] Hemoglobin 14.3 12.0 - 15.5 g/dL [facility] Hematocrit 42.1 35.0 - 45.0 % [facility] MCV 96.3 81.0 - 97.0 fL [facility] MCH 32.7 28.0 - 34.0 pg [facility] MCHC 34.0 32.0 - 36.0 g/dL [facility] Platelet Count 294 150 - 400 10? 3 /uL [facility] RDW-SD 46.9 36.0 - 50.0 fL [facility] RDW-CV 13.2 11.2 - 14.8 % [facility] MPV 9.5 9.3 - 12.8 fL [facility] nRBC Absolute 0.00 0 10? 3 /uL [facility] nRBC Auto 0.0 0 /100 WBC [facility] Neutrophils % 73.5(H) 35.0 - 70.0 % [facility] Lymphocytes % 22.2 19.7 - 55.1 % [facility] Monocytes % 3.6 3.0 - 15.0 % [facility] Eosinophils % 0.6 0.0 - 6.0 % [facility] Basophil % 0.1 0.0 - 1.5 % [facility] Neutrophils Absolute 6.0 1.6 - 7.0 10? 3 /uL [facility] Lymphocyte Absolute 1.8 0.8 - 2.9 10? 3 /uL [facility] Monocytes Absolute 0.30 0.14 - 0.66 10? 3 /uL [facility] Eosinophils Absolute 0.05 0.00 - 0.22 10? 3 /uL [facility] Basophils Absolute 0.01 0.00 - 0.06 10? 3 /uL [facility] Immature Granulocytes % 0.1 0.0 - 1.0 % [facility] Blood specimen (specimen) BLOOD SPECIMEN / Unknown 10/14/2014 2:30 PM CDT 10/14/2014 3:01 PM CDT Sugar Rodriguez MD LAB - OC TOLOGY ORDERABLES [facility] [address] [place] [address] * (ABNORMAL) COMPREHENSIVE METABOLIC PANEL (10/14/2014 2:30 PM CDT) BUN 10 7 - 26 mg/dL [facility] Creatinine 1.0 0.6 - 1.2 mg/dL [facility] Sodium 138 136 - 145 mmol/L [facility] Potassium 3.6 3.5 - 4.5 mmol/L [facility] Chloride 105 98 - 107 mmol/L [facility] CO2 25 22 - 29 mmol/L [facility] Glucose 87 70 - 115 mg/dL [facility] Calcium 9.3 8.4 - 10.2 mg/dL [facility] Protein Total 6.9 6.0 - 8.3 g/dL [facility] Albumin 3.5 3.4 - 5.0 g/dL [facility] Bilirubin Total 0.3 0.2 - 1.2 mg/dL [facility] Alkaline Phosphatase 72 40 - 150 Units/L [facility] ALT 8 0 - 55 Units/L [facility] AST 13 5 - 34 Units/L [facility] Anion Gap 12 8 - 18 [facility] BUN/Creatinine Ratio 10 7 - 23 [facility] Osmolality Calculated 270 270 - 300 mOsm/kg [facility] Albumin/Globulin Ratio 1.0(L) 1.1 - 2.3 [facility] eGFR 60(L) >60 mL/min/1.7 3 m2 [facility] Blood specimen (specimen) BLOOD SPECIMEN / Unknown 10/14/2014 2:30 PM CDT 10/14/2014 3:01 PM CDT Sugar Rodriguez MD LAB - CHEM ISTRY ORDERABLES [address] [phone] * TSH (10/14/2014 2:30 PM CDT) TSH 1.048 0.350 - 4.940 uIU/mL [facility] Blood specimen (specimen) BLOOD SPECIMEN / Unknown 10/14/2014 2:30 PM CDT 10/14/2014 3:01 PM CDT Sugar Rodriguez MD LAB - CHEM ISTRY ORDERABLES [facility] [address] [phone] Care Teams Powerbuilder Relationship Specialty Start Date End Date Charlie Abreu MD PCP - General 05/27/18
--- OUTSIDE RECORDS SUMMARY | 2024-04-29 16:48 | XMS_ITS | Encounter Summary ---
Author Organization [facility] Address [address] [place] [address] Phone Care Team Providers Care Lead Front End Developer Name Role Phone Kathrin Cruz MD Unavailable [phone] Charlie Abreu MD Primary Care Provider [phone] Iris Christopher JIRA DEVELOPER Unavailable Unavailab le Reason for Visit * Reason Comments Medication Refill Encounter Details Date Type Department Care Team (Late st Contact Info) Description 04/25/2023 Refill [facility] - Family Medicine [facility] [address] [place] [address] Ry Shell MD [address] [place] [address] Medication Refill Social History Tobacco Use Types Packs/Day Years Used Date Smoking Tobacco: Every Day Cigarettes 1 30 Smokeless Tobacco: Never Alcohol Use Standard Drinks/Week Comments No 0 (1 standard drink = 0.6 oz pur e alcohol) [facility] Utilities Answer Date Recorded In the past 12 months has e electric, gas, oil, or water company threatened to shut off services in your home? Yes 04/15/2023 Social Connection and Isolation Panel [NHANES] A nswer Date Recorded Frequency of Communication with Friends and Fami ly Not on file 04/15/2023 Frequency of Social Gatherings with Friends and Family Not on file 04/15/2023 How often do you attend anglican or uatsdin serv ices? Never 04/15/2023 Do you belong to any clubs o r organizations such as anglican groups, unions, fraternal or athletic groups, or school groups? No 04/15/2023 How often do you attend meet ings of the clubs or organizations you belong to? Never 04/15/2023 Are you , , di vorced, , never , or living with a partner? 04/15/2023 AUDIT-C Answer Date Recorded Q1: How often do you have a drink containing alcohol? Never 04/15/2023 Q2: How many drinks containi ng alcohol do you have on a typical day when you are drinking? Patient does not drink Q3: How often do you have si x or more drinks on one occasion? Never 04/15/2023 Overall Financial Resource Strain (CARDIA) Answe r Date Recorded How hard is it for you to pa y for the very basics like food, housing, medical care, and heating? Somewhat hard 04/15/2023 PHQ-2 Answer Date Recorded Total Score - Questions 1-9 12 03/31 [facility] - Occupational Stress Questionnaire Answer Date Recorded Do you feel stress - tense, restless, nervous, or anxious, or unable to sleep at night because your mind is troubled all the time - these days? Rather much 04/15/2023 Exercise Vital Sign Answer Date Recorde d On average, how many days pe r week do you engage in moderate to strenuous exercise (like a brisk walk)? 3 days 04/15/2023 On average, how many minutes do you engage in exercise at this level? 20 min 04/15/2023 Hunger Vital Sign Answer Date Recorded Within the past 12 months, y ou worried that your food would run out before you got the money to buy more. Never true Within the past 12 months, t he food you bought just didn't last and you didn't have money to get more. Sometimes true PRAPARE - Transportation Answer Date Re corded In the past 12 months, has l ack of transportation kept you from medical appointments or from getting medications? Yes 03/31 In the past 12 months, has l ack of transportation kept you from meetings, work, or from getting things needed for daily living? Yes 04/15/2023 Housing Stability Vital Sign Answer Alejandro e Recorded In the last 12 months, was t here a time when you were not able to pay the mortgage or rent on time? No 04/15/2023 In the last 12 months, how many places have you lived? 1 04/15/2023 In the last 12 months, was t here a time when you did not have a steady place to sleep or slept in a retirement (including now)? No 04/15/2023 Education Answer Date Recorded What is the highest level of school you have completed or the highest degree you have received? Some college, no degree 02/23/2020 Sexually Active Control Partners Comments Yes [employer]. 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 Requested Prescriptions Pending Prescriptions Disp Refills losartan potassium-hydrochlorothiazide (HYZAAR) 100-25 MG Tablet [Pharmacy Med Name: LOSARTAN/HCTZ 100/25MG TABLETS] 90 Tablet 1 Sig: TAKE 1 TABLET BY MOUTH DAILY ANGIOTENSIN-II RECEPTOR BLOCKERS-DIURETICS COMBO PROTOCOL Failed - 04/25/2023 8:51 AM Failed - Serum potassium on record in past 12 months POTASSIUM Date Value Ref Range Status 07/05/2021 3.5 3.5 - 5.1 mmol/L Final Failed - Serum sodium on record in past 12 months SODIUM Date Value Ref Range Status 07/05/2021 139 136 - 144 mmol/L Final Failed - GFR on record in past 12 months GFR, EST. NONAFRICAN Date Value Ref Range Status 07/05/2021 >60 >=60 Final Passed - BP on record in the past year Clinician-entered: BP Readings from Last 3 Encounters: 04/16/23 144/65 10/25/22 170/88 09/30/22 130/78 Patient-entered: No data recorded Passed - No positive test in the past 12 months or most recent test was negative Passed - Visit with relevant provider in past year or upcoming 90 days Recent Visits Date Type Provider Dept 04/16/23 Office Visit [facility] 10/25/22 Office Visit Ry Shell MD [facility] 09/30/22 Office Visit [facility] 09/26/22 Office Visit Tyra Siemon APRN, INTERNETWORKING TECHNICIAN [facility] Showing recent visits within past 365 days and meeting all other requirements Future Appointments Date Type Provider Dept 05/13/23 Appointment Charlie Abreu MD [facility] Showing future appointments within next 90 days and meeting all other requirements Passed - No active on record MESH FILTER FABRICATOR documented in this encounter Plan of Treatment Upcoming Encounters Date Type Department Care Team (Late st Contact Info) Description 05/05/2024 1:45 PM WIRE MESH FILTER FABRICATOR Office Visit [facility] - Family General [facility] [address] [place] [address] Charlie Abreu MD [address] [address] documented as of this encounter Visit Diagnoses Diagnosis Primary hypertension Unspecified essential hypertension documented in this encounter Additional Health Concerns Assessment Noted Time PHQ-9 Depression Total Score: 12 024 2:19 PM WIRE MESH FILTER FABRICATOR documented as of this encounter Care Teams Lead Front End Developer Relationship Specialty Start Date End Date Charlie Abreu MD [address] [address] PCP - General Family Medicine 05/08/18 Kathrin Cruz MD [address] [place] [address] Consulting Physician Family Medicine 07/04/17 Iris Christopher LSW [place] Research Specialist Mixer Operator Vacuum Pan Salt 05/16/23 11/07/23 documented as of this encounter
--- OUTSIDE RECORDS SUMMARY | 2024-04-29 16:48 | XMS_ITS | Encounter Summary ---
Author Organization [facility] Address [address] [facility] [place] [address] Care Team Providers Care Data Security Coordinator Name Role Phone Charlie Abreu MD Primary Care Provider [phone] Reason for Visit * Reason Onset Date Comments MEDICATION REFILL 07/23/2018 Encounter Details Date Type Department Care Team (Late st Contact Info) Description 07/23/2018 Refill [facility] [address] [place] [address] Briana Larson MD [address] [place] [address] MEDICATION REFILL Social History Tobacco Use Types Packs/Day Years Used Date Smoking Tobacco: Every Day Cigarettes 0.5 30 Smokeless Tobacco: Never Alcohol Use Standard Drinks/Week Comments No 0 (1 standard drink = 0.6 oz pur e alcohol) Sex and Gender Information Value Date Recorded Sex Assigned at Not on file Gender Identity Not on file Sexual Orientation Not on file documented as of this encounter Miscellaneous Notes * Telephone Encounter - Briana Larson MD - 07/23/2018 11:06 AM CDT Psych had taken over prescribing patient's Cymbalta, so I did not refill it. Briana Larson MD Rheumatology Fellow documented in this encounter Plan of Treatment Not on file documented as of this encounter Visit Diagnoses Not on filedocumented in this encounter Care Teams Data Security Coordinator Relationship Specialty Start Date End Date Charlie Abreu MD PCP - General 05/27/18 documented as of this encounter
--- OUTSIDE RECORDS SUMMARY | 2024-04-29 16:48 | XMS_ITS | Clinical Summary ---
Author Organization [facility] Address [address] [place] [address] Care Team Providers Care Speech Language Specialist Name Role Phone Charlie Abreu MD Primary Care Provider Source Comments [facility],non-owned Affiliates and Associated Physician Practices is amultiple site organization consisting of ambulatory clinics and hospital sitesin [place], [place], [place] and [place]. This disclosure is being madepursuant to the Care Everywhere program and may not contain all information available regarding this patient. Last updated 17.[facility] Allergies Active Allergy Reactions Criticality Noted Date Comments Allergy Itching,Rash Medium 10/04/2014 Uncaria Tomentosa, Cats Claw Other Low 10/04/2014 EYES SWOLLEN SHUT Cephalexin Anaphylaxis High 10/04/2014 Meloxicam Other,Palpitations High 07/02/2017 Pollen Extract Itching Low 10/04/2014 Medications * Be aware that medications may not be up to date on this document. Alwaysverify current medications with the patient. 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 Essential (primary) hypertension 10/04/2014 Polyosteoarthritis 10/04/2014 Major depressive disorder, single episode 2014 Family History Medical History Relation Name Comments Arthritis - Rheumatoid Neg Hx Lupus Neg Hx Social History Tobacco Use Types Packs/Day Years [...] Comments Blood Pressure 190/90 04/28/2019 12:55 PM LOTUS NOTES DEVELOPER Pulse 100 04/28/2019 12:55 PM LOTUS NOTES DEVELOPER Temperature 36.4 ??C (97.5 ??F) 04/28/2019 12:[address] Respiratory Rate 16 05/18/2018 1:58 PM LOTUS NOTES DEVELOPER Oxygen Saturation 100% 05/18/2018 1:58 PM LOTUS NOTES DEVELOPER Inhaled Oxygen Concentration - - Weight 73 kg (161 lb) 04/28/2019 12:55 PM LOTUS NOTES DEVELOPER Height 166.4 cm (5' 5.5 ) 04/28/2019 12:55 PM CS T Body Mass Index 26.38 04/28/2019 12:55 PM LOTUS NOTES DEVELOPER Plan of Treatment Health Maintenance Due Date Last Done Comments COLOGUARD (AGES 45-75) - COLON CA SCREENING 1968 COLON MONITORING 1968 COLONOSCOPY - COLON CA SCREENING 1968 CT COLONOGRAPHY - COLON CA SCREENING 1968 Colorectal Cancer Screening 1968 FIT - COLON CA SCREENING 1968 FLEX SIG - COLON CA SCREENING 1968 LIPID TESTING 1968 MAMMOGRAM 1968 PAP SMEAR 1968 HIV SCREENING 07/22/1983 HEPATITIS C SCREENING 07/17/1986 DTAP/TDAP/TD VACCINES (1 - Tdap) 07/22/1987 HEPATITIS B VACCINE (1 of 3 - 19+ 3-dose series) 07/22/1987 PNEUMOCOCCAL VACCINE 50+ (1 of 2 - PCV) 07/22/1987 PNEUMOCOCCAL VACCINE (1 of 2 - PCV) 07/22/1987 SCREENING FOR DIABETES 12/16/2017 10/14/2014 ZOSTER VACCINE (1 of 2) 2018 COVID-19 VACCINE (2023- season) 2023 INFLUENZA VACCINE (#1) 2023 9, 01/27/2018, 01/08/2017, Additional history exists DEPRESSION SCREENING 03/31/2024 HIB VACCINE Aged Out No longer eligi ble based on patient's age to complete this topic HPV VACCINE Aged Out No longer eligi ble based on patient's age to complete this topic MENINGOCOCCAL (Group B) VACCINE Aged Out No longer eligible based on patient's age to complete this topic MENINGOCOCCAL VACCINE Aged Out No mary lacie eligible based on patient's age to complete this topic Procedures Procedure Name Priority Date/Time Associated Diagnosis Comments COMPREHENSIVE METABOLIC PANEL Routine 10/14/2014 2:30 PM CDT from Last 3 Months or Most Recently Relevant to Health Maintenance Results * (ABNORMAL) COMPREHENSIVE METABOLIC PANEL (10/14/2014 2:30 PM CDT) BUN 10 7 - 26 mg/dL [facility] Creatinine 1.0 0.6 - 1.2 mg/dL [facility] Sodium 138 136 - 145 mmol/L [facility] Potassium 3.6 3.5 - 4.5 mmol/L [facility] Chloride 105 98 - 107 mmol/L [facility] CO2 25 22 - 29 mmol/L [facility] Glucose 87 70 - 115 mg/dL [facility] Calcium 9.3 8.4 - 10.2 mg/dL [facility] Protein Total 6.9 6.0 - 8.3 g/dL [facility] Albumin 3.5 3.4 - 5.0 g/dL [facility] Bilirubin Total 0.3 0.2 - 1.2 mg/dL [facility] Alkaline Phosphatase 72 40 - 150 Units/L [facility] ALT 8 0 - 55 Units/L [facility] AST 13 5 - 34 Units/L [facility] Anion Gap 12 8 - 18 [facility] BUN/Creatinine Ratio 10 7 - 23 [facility] Osmolality Calculated 270 270 - 300 mOsm/kg [facility] Albumin/Globulin Ratio 1.0(L) 1.1 - 2.3 [facility] eGFR 60(L) >60 mL/min/1.7 3 m2 [facility] Blood specimen (specimen) BLOOD SPECIMEN / Unknown 10/14/2014 2:30 PM CDT 10/14/2014 3:01 PM CDT Sugar Rodriguez MD LAB - CHEM ISTRY ORDERABLES [facility] [address] [phone] from Last 3 Months or Most Recently Relevant to Health Maintenance Care Teams Speech Language Specialist Relationship Specialty Start Date End Date Charlie Abreu MD PCP - General 05/27/18
--- OUTSIDE RECORDS SUMMARY | 2024-04-29 16:48 | XMS_ITS | Encounter Summary ---
Author Organization [facility] Address [address] [place] [address] Phone Care Team Providers Care Archives Director Name Role Phone Kathrin Cruz MD Unavailable Charlie Abreu MD Primary Care Provider [phone] Reason for Visit * Reason Comments Medication Refill Encounter Details Date Type Department Care Team (Late st Contact Info) Description 03/25/2024 Refill [facility] - Family Medicine [facility] [address] [place] [address] Charlie Abreu MD [address] [address] Medication Refill Social History Tobacco Use Types Packs/Day Years Used Date Smoking Tobacco: Every Day Cigarettes 1 30 Smokeless Tobacco: Never Alcohol Use Standard Drinks/Week Comments No 0 (1 standard drink = 0.6 oz pur e alcohol) [facility] Utilities Answer Date Recorded In the past 12 months has [employer] electric, gas, oil, or water company threatened to shut off services in your home? Yes 06/02/2023 Social Connection and Isolation Panel [NHANES] A nswer Date Recorded In a typical week, how many times do you talk on the phone with family, friends, or neighbors? Twice a week 06/02/2023 How often do you get together with friends or re latives? Once a week 06/02/2023 How often do you attend religion or confucianism serv ices? Never 06/02/2023 Do you belong to any clubs o r organizations such as religion groups, unions, fraternal or athletic groups, or school groups? No 06/02/2023 How often do you attend meet ings of the clubs or organizations you belong to? Never 06/02/2023 Are you , , di vorced, , never , or living with a partner? 06/02/2023 AUDIT-C Answer Date Recorded Q1: How often do you have a drink containing alcohol? Never 06/02/2023 Q2: How many drinks containi ng alcohol do you have on a typical day when you are drinking? Patient does not drink Q3: How often do you have si x or more drinks on one occasion? Never 06/02/2023 Overall Financial Resource Strain (CARDIA) Answe r Date Recorded How hard is it for you to pa y for the very basics like food, housing, medical care, and heating? Hard 06/02/2023 PHQ-2 Answer Date Recorded Total Score - Questions 1-9 9 06/2023 [facility] - Occupational Stress Questionnaire Answer Date Recorded Do you feel stress - tense, restless, nervous, or anxious, or unable to sleep at night because your mind is troubled all the time - these days? Rather much 06/02/2023 Exercise Vital Sign Answer Date Recorde d On average, how many days pe r week do you engage in moderate to strenuous exercise (like a brisk walk)? 0 days 06/02/2023 On average, how many minutes do you engage in exercise at this level? 0 min 06/02/2023 Hunger Vital Sign Answer Date Recorded Within the past 12 months, y ou worried that your food would run out before you got the money to buy more. Sometimes true Within the past 12 months, t he food you bought just didn't last and you didn't have money to get more. Sometimes true 06/2023 PRAPARE - Transportation Answer Date Re corded In the past 12 months, has l ack of transportation kept you from medical appointments or from getting medications? Yes 06/2023 In the past 12 months, has l ack of transportation kept you from meetings, work, or from getting things needed for daily living? Yes 06/02/2023 Housing Stability Vital Sign Answer Alejandro e Recorded In the last 12 months, was t here a time when you were not able to pay the mortgage or rent on time? No 06/02/2023 In the last 12 months, how many places have you lived? 1 06/02/2023 In the last 12 months, was t here a time when you did not have a steady place to sleep or slept in a penitentiary (including now)? No 06/02/2023 Education Answer Date Recorded What is the [...] Telephone Encounter - Jillian Catherine RN - 03/29/2024 11:08 AM CST Done IAL PROCEDURES TECHNOLOGIST * Telephone Encounter - Irene Girard MA - 03/26/2024 4:05 PM SPECIAL PROCEDURES TECHNOLOGIST Spoke with pt and schedule future ov. She stated she isn't taking this medication and that the pharmacy requested it. Please d/c from med list. IAL PROCEDURES TECHNOLOGIST * Telephone Encounter - Jillian Catherine RN - 03/25/2024 10:47 AM CST Needs OV IAL PROCEDURES TECHNOLOGIST * Telephone Encounter - Jillian Catherine RN - 03/25/2024 10:47 AM CST Medication failed the protocol, provider to review and approve the medication order if appropriate. Requested Prescriptions Pending Prescriptions Disp Refills ARIPiprazole (ABILIFY) 5 MG Tablet [Pharmacy Med Name: ARIPIPRAZOLE 5MG TABLETS] 90 Tablet 0 Sig: TAKE 1 TABLET BY MOUTH DAILY Not Delegated - Antipsychotic Protocol Failed - 03/25/2024 10:47 AM Failed - This refill cannot be delegated Passed - Visit with relevant provider in past 12 months or upcoming 90 days Recent Visits Date Type Provider Dept 05/13/23 Office Visit Charlie Abreu MD [facility] 04/16/23 Office Visit Charlie Abreu MD [facility] Showing recent visits within past 365 days and meeting all other requirements Future Appointments No visits were found meeting these conditions. Showing future appointments within next 90 days and meeting all other requirements IAL PROCEDURES TECHNOLOGIST documented in this encounter Plan of Treatment Upcoming Encounters Date Type Department Care Team (Late st Contact Info) Description 05/05/2024 1:45 PM SPECIAL PROCEDURES TECHNOLOGIST Office Visit [facility] - Family Medicine [facility] [address] [place] [address] Charlie Abreu MD [address] [address] documented as of this encounter Goals Goal Patient Goal Type Associated Problems Recent Progress Patient-Stated? Author Find Help In My Community Patient Goals On track( 024 9:36 AM CDT) Yes Iris Christopher, PADMINI Note: Follow Up Date: Week of 11/10/23 - follow-up on any referrals for help I am given [employer] will mail food pantry, utility assistance resources to patient. Patient will outreach and connect with community resources as needed. Why is this important? Knowing how and where to find help for yourself or family in your neighborhood and community is an important skill. You will want to take some steps to learn how. Notes: 06/09/23 - Mel states she received the resource handouts on Friday but has not had time to really read through them. Patient agrees to read them and utilize as needed over the next several weeks. 06/20/23 - Patient reports she plans to reach out to [facility] in [place] for utility help/food pantry and reach out to [facility] for possible help on car repair. Encouraged patient to use resources as needed. Patient has not yet received [facility] free ride bus pass that SHILPA ENNIS helped her apply for. SHILPA ENNIS emailed contact at [facility] asking about status of bus pass card. 07/03/23 - Patient received her [facility] free ride bus pass yesterday. Educated her on new pérez program for [employer] and made email referral to Jasmin Thomas at [facility] [place]. documented as of this encounter Visit Diagnoses Not on filedocumented in this encounter Additional Health Concerns Assessment Noted Time PHQ-9 Depression Total Score: 9 06/02/19 24 2:02 PM SPECIAL PROCEDURES TECHNOLOGIST documented as of this encounter Care Teams Archives Director Relationship Specialty Start Date End Date Charlie Abreu MD [address] [address] PCP - General Family Medicine 05/08/18 Kathrin Cruz MD [address] [place] [address] Consulting Physician Family Medicine 07/04/17 documented as of this encounter
--- OUTSIDE RECORDS SUMMARY | 2024-04-29 16:48 | XMS_ITS | Clinical Summary ---
Author Organization [facility] Address [address] [place] [address] Phone Care Team Providers Care Sugar Controller Name Role Phone Kathrin Cruz MD Unavailable [phone] Charlie Abreu MD Primary Care Provider [phone] Allergies Active Allergy Reactions Criticality Noted Date Comments Cephalexin Anaphylaxis High 10/12/2014 Meloxicam Anxiety,Palpitations ,Other (see Comments) High 06/20/2017 Heart palpitations Medications DULoxetine (CYMBALTA) [address] [place]ales ions:Anxiety,Dep ression, unspecified depression type TAKE ONE CAPSULE BY MOUTH TWICE DAILY 180 Capsule 1 4 Active losartan potassium-hydroc hlorothiazide (HYZAAR) 100-25 MG TabletIndication s:Primary hypertension TAKE 1 TABLET BY MOUTH DAILY 90 Tablet 1 4 Active amLODIPine (NORVASC) 5 MG Tablet TAKE 1 TABLET BY MOUTH DAILY 90 Tablet 1 4 Active Additional Information Patient not taking.Reported on 04/05/2024 Active Problems Problem Noted Date Diagnosed Date Screening for breast cancer 05/26/2018 Screening for cervical cancer 05/26/2018 Physical exam, annual (Adult) 05/26/2018 Chronic right shoulder pain 05/26/2018 Screening for colon cancer 05/26/2018 Primary insomnia 05/26/2018 Fibromyalgia 03/31/2015 Depression 03/31/2007 Overview (07/04/2017): per patient depression disorder Anxiety 03/31/2007 Encounters Date Type Department Care Team Description 04/05/2024 Nurse Triage [facility] [address] [place] [phone] Charlie Abreu MD Shortness of Breath; Wheezing; Generalized Weakness 03/25/2024 [facility]ill [facility] [address] [place] [address] Charlie Abreu MD Medication Refill from Last 3 Months Immunizations Immunization Administration Dates Next Due Influenza Vaccine, Quadrivalent, PF 03/31,04/08/2022,03/16/2020, 019,01/27/2018 Influenza, Injectable, Quadrivalent 01/08/2017,0 05/23/2016 TDAP Vaccine 02/16/2023 Family History Medical History Relation Name Comments No Known Problems Brother from gun shot Cancer Father unknown kind Heart Attack Mother Heart Disease Mother Stroke Mother Relation Name Status Comments Brother Father Mother Alive Social History Tobacco Use Types Packs/Day Years Used Date Smoking Tobacco: Every Day Cigarettes 1 30 Smokeless Tobacco: Never Tobacco Cessation:Ready to Q uit: No; Counseling Given: No Alcohol Use Standard Drinks/Week Comments No 0 (1 standard drink = 0.6 oz pur e alcohol) [facility] Utilities Answer Date Recorded In the past 12 months has [employer] electric, gas, oil, or water company threatened [...] week 06/02/2023 How often do you attend episcopalian or sabianist serv ices? Never 06/02/2023 Do you belong to any clubs o r organizations such as episcopalian groups, unions, fraternal or athletic groups, or [...] Total Score - Questions 1-9 9 06/2023 [facility] - Occupational [...] place to sleep or slept in a fpc (including now)? No 06/02/2023 Education Answer Date [...] file Not on file Not on file Last Filed Vital Signs Vital Sign Reading Time Taken Comments Blood Pressure 136/66 05/13/2023 3:49 PM SPEED BELT SANDER Pulse 103 05/13/2023 3:49 PM SPEED BELT SANDER Temperature 36.3 ??C (97.4 ??F) 05/13/2023 3:49 PM CS T Respiratory Rate 17 05/13/2023 3:49 PM SPEED BELT SANDER Oxygen Saturation 99% 05/13/2023 3:49 PM SPEED BELT SANDER Inhaled Oxygen Concentration - - Weight 78.9 kg (174 lb) 05/13/2023 3:49 PM SPEED BELT SANDER Height 166.4 cm (5' 5.5 ) 05/13/2023 3:49 PM SPEED BELT SANDER Body Mass Index 28.51 05/13/2023 3:49 PM SPEED BELT SANDER Plan of Treatment Upcoming Encounters Date Type Department Care Team (Late st Contact Info) Description 05/05/2024 1:45 PM SPEED BELT SANDER Office Visit [facility] [address] [place] [address] Charlie Abreu MD [address] [address] Health Maintenance Due Date Last Done Comments Hepatitis C Virus (HCV) Screening 1970 Hepatitis B Immunization (1 of 3 - 19+ 3-dose series) 07/22/1987 Pneumococcal Immunization (50+ years) (1 of 2 - PCV) 07/22/1987 Cologuard 2018 Immunochemical Fecal Occult Blood 2018 Lung Cancer Screening 2018 Zoster Immunization (1 of 2) 2018 Influenza Immunization (#1) 11/30/202303/31, 04/08/2022, 03/16/2020, Additional history exists SARS-COV-2 Immunization ( season) 2023 Pap Smear 09/26/2025 09/26/2022 Mammogram 12/09/2025 12/10/2023, 08/30, 07/22/2018 Cervical Cancer Screening (CCS) 09/27/2027 HPV/Cotest 09/27/2027 09/26/2022 Colonoscopy 08/04/2030 08/04/2020 Colorectal Cancer Screening 08/04/2030 Td Immunization Every 10 Years (Adults With 1 Tdap) 02/16/2033 02/16/2023 Respiratory Syncytial Virus (RSV) Immunization (Adult) (1 - 1-dose 75+ series) 07/22/2043 08/04/2020 Meningococcal Immunization (ACWY) Aged Out No longer eligible based on patient's age to complete this topic Rotavirus Immunization Aged Out No lo nger eligible based on patient's age to complete this topic Goals Goal Patient Goal Type Associated Problems Recent Progress Patient-Stated? Author Find Help In My Community Patient Goals On track( 024 9:36 AM CDT) Yes Iris Christopher, PADMINI Note: Follow Up Date: Week of 11/10/23 - follow-up on any referrals for help I am given SW Autom[employer] Tire Technician will mail food pantry, utility assistance resources [...] reports she plans to reach out to [employer] in [place] for utility help/food pantry and reach out to [facility] for possible help on car repair. Encouraged patient to use resources as needed. Patient has not yet received [facility] free ride bus pass that SHILPA ENNIS helped her apply for. SHILPA ENNIS emailed contact at [facility] asking about status of bus pass card. 07/03/23 - Patient received her [facility] free ride bus pass yesterday. Educated her on new pérez program for [employer] and made email referral to Jasmin Thomas at [facility]. Procedures Procedure Name Priority Date/Time Associated Diagnosis Comments FRANSICO SCREENING BILATERAL DIGITAL W CAD W CAITLIN Routine 12/10/2023 2:30 PM CDT Visit for screening mammogram HUMAN PAPILLOMA VIRUS (HPV) Routine 09/26/2022 2:49 PM CDT Encounter for gynecological examination without abnormal finding Encounter for screening for human papillomavirus (HPV) PATHOLOGY CYTOLOGY WEBSPHERE COMMERCE DEVELOPER Routine 09/26/2022 2:49 PM CDT Encounter for gynecological examination without abnormal finding from Last 3 Months or Most Recently Relevant to Health Maintenance Results * FRANSICO SCREENING BILATERAL DIGITAL W CAD W CAITLIN (12/10/2023 2:30 PM CDT) Anatomical Region Laterality Modality breast Bilateral Mammography 12/10/2023 2:21 PM CDT Narrative 12/18/2023 4:48 PM CDT - FRANSICO SCREENING BILATERAL DIGITAL W CAD W CAITLIN BILATERAL DIGITAL SCREENING MAMMOGRAM 3D/2D WITH CAD WITH MEDIOLATERAL OBLIQUE CRANIOCAUDAL: 12/10/2023 The study was acquired using digital technology and interpreted from soft copy. Current study was also evaluated with ICAD version 7.2. 2D digital mammographic views, as well as 3D digital tomosynthesis were performed in the CC and MLO projections. ?? CLINICAL: Routine screening. Patient has no complaints. No personal history of cancer. No family history of breast cancer. ?? COMPARISONS: Comparison is made to exams dated: ??09/18/2021, 07/22/2018 [facility], and 10/20/2014 [facility]. ?? BREAST TISSUE:There are scattered areas of fibroglandular density. ?? FINDINGS: No significant masses, calcifications, or other findings are seen in either breast. ?? There has been no significant interval change. IMPRESSION: NEGATIVE There is no mammographic evidence of malignancy. A 1 year screening mammogram is recommended. ?? A letter will be sent to the patient with these results. The patient will be entered into a reminder system with a target due date of 1 year for her next screening exam. Electronically signed by: Marilia Scott M.D. ? ab/penrad:12/11/2023 15:34:59 ?? [employer](s): Lilly ??RT Luis(R)(M), [facility] letter sent: Normal Exam ?? Reading location: [facility] Mammogram BI-RADS: Category 1: Negative Procedure Note Marilia Scott MD - 12/18/2023 - FRANSICO SCREENING BILATERAL DIGITAL W CAD W CAITLIN BILATERAL DIGITAL SCREENING MAMMOGRAM 3D/2D WITH CAD WITH MEDIOLATERAL OBLIQUE CRANIOCAUDAL: 12/10/2023 The study was acquired using digital technology and interpreted from soft copy. Current study was also evaluated with ICAD version 7.2. 2D digital mammographic views, as well as 3D digital tomosynthesis were performed in the CC and MLO projections. CLINICAL: Routine screening. Patient has no complaints. No personal history of cancer. No family history of breast cancer. COMPARISONS: Comparison is made to exams dated: 09/18/2021, 07/22/2018 [facility], and 10/20/2014 [facility]. BREAST TISSUE:There are scattered areas of fibroglandular density. FINDINGS: No significant masses, calcifications, or other findings are seen in either breast. There has been no significant interval change. IMPRESSION: NEGATIVE There is no mammographic evidence of malignancy. A 1 year screening mammogram is recommended. A letter will be sent to the patient with these results. The patient will be entered into a reminder system with a target due date of 1 year for her next screening exam. Electronically signed by: Marilia Scott M.D. ab/penrad:12/11/2023 15:34:59 [employer](s): RT Xavi(R)(M), [facility] letter sent: Normal Exam Reading location: [facility] Mammogram BI-RADS: Category 1: Negative us Charlie Abreu MD IMG MAMMO ORDERABLES Final Re sult * PATHOLOGY CYTOLOGY WEBSPHERE COMMERCE DEVELOPER (09/26/2022 2:49 PM CDT) SPECIMEN ADEQUACY Satisfactory for evaluation. Endocervical/transf ormation zone component is present. 10/04/2022 1:16 PM CDT [facility] DESCRIPTIVE DIAGNOSIS NEGATIVE FOR INTRAEPITHELIAL LESIONS OR MALIGNANCY. 10/04/2022 1:16 PM CDT [facility] Automated Examination Analysis of this sample has been assisted by an automated imaging and review system ([employer] System, [employer], [place], [place]). This case is further evaluated and finalized by a station jailer and/or pathologist. 10/04/2022 1:16 PM CDT [facility] Disclaimer The PAP smear is a screening test designed to detect cancerous or precancerous cells of the uterine cervix. It is one of the best means available for detection of cervical cancer but still carries an inherent false-negative rate. The consequences of a false-negative PAP result can be minimized by adhering to current screening guidelines. The following are general guidelines recommended by the ACS, ASCP, ASCCP, and ACOG: PAP testing is recommended every three years for women 21-29, Co-Testing , a PAP test in conjunction with an HPV (Human Papillomavirus) test for women ages 30-65, and no PAP or HPV testing for women under the age of 21 or older than 65 unless clinically indicated. 10/04/2022 1:16 PM CDT [facility] Other (Cervix/Endocerv ix) Non-Phlebotomy Collection / Unknown 09/26/2022 2:49 PM CDT 09/26/2022 2:50 PM CDT us Tyra Simeon DIPPER AND BAKER, REGISTRATION SPECIALIST PATHOLOGY/CYTOLOGY O RDERABLES Final Result [facility] [address] [place] [address], [place] * HUMAN PAPILLOMA VIRUS (HPV) (09/26/2022 2:49 PM CDT) HPV OTHER HIGH RISK TYPES, PCR NEGATIVE NEGATIVE 09/27/2022 1:56 PM CDT [facility] Comment: The following Other High Risk types were not detected: 31, 33, 35, 39, 45, 51, 52, 56, 58, 59, 66, and 68. A negative high-risk HPV result does not exclude the possibility of future cytologic HSIL or underlying CIN2-3 or cancer. The presence of PCR inhibitors may cause false negative or invalid results. If concentrations of whole blood in the sample exceed 1.5% (dark red or brown coloration) in PreservCyt solution, there is a likelihood of obtaining a false-negative result. HPV TYPE 16 NEGATIVE NEGATIVE 09/27/2022 1:56 PM CDT [facility] Comment: A negative high-risk HPV result does not exclude the possibility of future cytologic HSIL or underlying CIN2-3 or cancer. The presence of PCR inhibitors may cause false negative or invalid results. If concentrations of whole blood in the sample exceed 1.5% (dark red or brown coloration) in PreservCyt solution, there is a likelihood of obtaining a false-negative result. HPV TYPE 18 NEGATIVE NEGATIVE 09/27/2022 1:56 PM CDT [facility] Comment: A negative high-risk HPV result does not exclude the possibility of future cytologic HSIL or underlying CIN2-3 or cancer. The presence of PCR inhibitors may cause false negative or invalid results. If concentrations of whole blood in the sample exceed 1.5% (dark red or brown coloration) in PreservCyt solution, there is a likelihood of obtaining a false-negative result. HPV ORDER BE USED FOR SCREENING OR DIAGNOSTIC SCREENING 09/27/2022 1:56 PM CDT [facility] Other Non-Phlebotomy Collection / Unknown 09/26/2022 2:49 PM CDT 09/26/2022 2:50 PM CDT Narrative [facility] - 09/27/2022 1:56 PM CDT Performed by Real-Time Polymerase Chain Reaction (PCR) on the [employer] Blu 4800. This assay has been validated for use with post-aliquot samples from the [employer]5000 processor. us Tyra Simeon APRN, CNP LAB SEND OUTS Tran mendoza Result [facility] [address] [place] [address], [facility] [address] [place] [address] from Last 3 Months or Most Recently Relevant to Health Maintenance Insurance [place] Care Teams Sugar Controller Relationship Specialty Start Date End Date Charlie Abreu MD [id number] [address] PCP - General Family Medicine 05/08/18 Kathrin Cruz MD [address] [place] [address] Consulting Physician Family Medicine 07/04/17
--- OUTSIDE RECORDS SUMMARY | 2024-04-29 16:48 | XMS_ITS | Encounter Summary ---
Author Organization [facility] Address [address] [place] [address] Phone Care Team Providers Care Strategic Sourcing Manager Name Role Phone Kathrin Cruz MD Unavailable Charlie Abreu MD Primary Care Provider Iris Christopher COMPUTER ANIMATOR Unavailable Unavailab le Reason for Visit * Reason Comments Medication Refill Encounter Details Date Type Department Care Team (Late st Contact Info) Description 06/16/2021 Refill [facility] [address] [place] [phone] Charlie Abreu MD [address] [address] Medication Refill Social History Tobacco Use Types Packs/Day Years Used Date Smoking Tobacco: Every Day Cigarettes 1 30 Smokeless Tobacco: Never Alcohol Use Standard Drinks/Week Comments No 0 (1 standard drink = 0.6 oz pur e alcohol) PHQ-2 Answer Date Recorded Total Score - Questions 1-9 0 01/30 Education Answer Date Recorded What is the [...] encounter Miscellaneous Notes * Telephone Encounter - Vale Hernandez RMA - 06/18/2021 2:36 PM CDT LVM * Telephone Encounter - Jillian Catherine RN - 06/18/2021 9:15 AM CDT Patient needs an appointment with PCP * Telephone Encounter - Jillian Catherine RN - 06/18/2021 9:15 AM CDT Medication failed the protocol, provider to review and approve the medication order if appropriate. Requested Prescriptions Pending Prescriptions Disp Refills DULoxetine (CYMBALTA) [address] Particles [Pharmacy Med Name: DULOXETINE DR 60MG CAPSULES] 60 Capsule 0 Sig: TAKE 1 CAPSULE BY MOUTH TWICE DAILY SNRI (6 Month Refill Only) Protocol Failed - 06/16/2021 5:35 AM Failed - Visit with relevant provider in past 6 months or upcoming 90 days Recent Visits No visits were found meeting these conditions. Showing recent visits within past 182 days and meeting all other requirements Future Appointments No visits were found meeting these conditions. Showing future appointments within next 90 days and meeting all other requirements Failed - Has an encounter in the past 6 months with a depression or anxiety visit diagnosis Passed - No test in the past 12 months or most recent test was negative Passed - No active on record Passed - Patient has established therapy with Serotonin-Norepinephrine Reuptake Inhibitors for at least 6 months documented in this encounter Plan of Treatment Upcoming Encounters Date Type Department Care Team (Late st Contact Info) Description 05/05/2024 1:45 PM BARIATRIC PHYSICIAN Office Visit [facility] [address] [place] [phone] Charlie Abreu MD [address] [address] documented as of this encounter Visit Diagnoses Diagnosis Anxiety Anxiety state, unspecified Depression, unspecified depression type documented in this encounter Additional Health Concerns Assessment Noted Time PHQ-9 Depression Total Score: 0 02/23/20 20 2:57 PM BARIATRIC PHYSICIAN documented as of this encounter Care Teams Strategic Sourcing Manager Relationship Specialty Start Date End Date Charlie Abreu MD [address] [address] PCP - General Family Medicine 05/08/18 Kathrin Cruz MD [address] [place] [address] Consulting Physician Family Medicine 07/04/17 Iris Christopher LSW [place] Dye Reel Operator Rn Ostomy 05/16/23 11/07/23 documented as of this encounter
--- OUTSIDE RECORDS SUMMARY | 2024-04-29 16:48 | XMS_ITS | Encounter Summary ---
Author Organization [facility] Address [address] [place] [address] Phone Care Team Providers Care Ophthalmic Medical Technician Name Role Phone Kathrin Cruz MD Unavailable [phone] Charlie Abreu MD Primary Care Provider Iris Christopher LINK TRAINER MECHANIC Unavailable Unavailab le Reason for Visit * Reason Comments Medication Refill Encounter Details Date Type Department Care Team (Late st Contact Info) Description 12/16/2020 Refill [facility] [address] [place] [phone] Charlie Abreu MD [address] [address] Medication Refill Social History Tobacco Use Types [...] encounter Miscellaneous Notes * Telephone Encounter - Charlie Abreu MD - 12/18/2020 10:11 AM CDT Prescription approved. Please call in * Telephone Encounter - Jillian Catherine RN - 12/18/2020 10:06 AM CDT Medication failed the protocol, provider to review and approve the medication order if appropriate. Requested Prescriptions Pending Prescriptions Disp Refills DULoxetine (CYMBALTA) [address] Particles [Pharmacy Med Name: DULOXETINE DR 60MG CAPSULES] 180 Capsule 1 Sig: TAKE ONE CAPSULE BY MOUTH TWICE DAILY SNRI (6 Month Refill Only) Protocol Failed - 12/16/2020 9:36 AM Failed - Visit with relevant provider [...] st Contact Info) Description 05/05/2024 1:45 PM HAIR DESIGNER [facility] [place] [address] [place] [address] Charlie Abreu MD [address] [address] documented as of this encounter Visit Diagnoses Diagnosis Anxiety Anxiety state, unspecified Depression, unspecified depression type documented in this encounter Additional Health Concerns Assessment Noted Time PHQ-9 Depression Total Score: 0 02/23/20 20 2:57 PM HAIR DESIGNER documented as of this encounter Care Teams Ophthalmic Medical Technician Relationship Specialty Start Date End Date Charlie Abreu MD [address] [address] PCP - General Family Medicine 05/08/18 Kathrin Cruz MD [address] [place] [address] Consulting Physician Family Medicine 07/04/17 Iris Christopher LSW [place] Kiln Puller Foundry Finisher 05/16/23 11/07/23 documented as of this encounter
--- OUTSIDE RECORDS SUMMARY | 2024-04-29 16:48 | XMS_ITS | Encounter Summary ---
Author Organization [facility] Address [address] [place] [address] Phone Care Team Providers Care Sales Assistant Entertainment And Media Name Role Phone Kathrin Cruz MD Unavailable Charlie Abreu MD Primary Care Provider [phone] Iris Christopher REVOLVING FIELD ASSEMBLER Unavailable Unavailab le Reason for Visit * Reason Comments Medication Refill Encounter Details Date Type Department Care Team (Late st Contact Info) Description 07/12/2023 Refill [facility] - Family Medicine [facility] [address] [place] [id number] Charlie Abreu MD [address] [address] Medication Refill Social History Tobacco Use Types Packs/Day Years Used Date Smoking Tobacco: Every Day Cigarettes 1 30 Smokeless Tobacco: Never Alcohol Use Standard Drinks/Week Comments No 0 (1 standard drink = 0.6 oz pur e alcohol) [facility] Utilities Answer Date Recorded In the past 12 months has [employer] electric, gas, oil, or water company threatened [...] week 06/02/2023 How often do you attend adventism or judaism serv ices? Never 06/02/2023 Do you belong to any clubs o r organizations such as adventism groups, unions, fraternal or athletic groups, or [...] Total Score - Questions 1-9 9 06/2023 [facility] - Occupational Stress Questionnaire Answer Date [...] place to sleep or slept in a skilled nursing (including now)? No 06/02/2023 Education Answer Date [...] encounter Miscellaneous Notes * Telephone Encounter - Jailene Bolivar RN - 07/12/2023 2:21 PM CDT Medication(s) [facility] Medication Refill Standing Order for Pediatricand Adult Patients. Requested Prescriptions Pending Prescriptions Disp Refills amLODIPine (NORVASC) 5 MG Tablet [Pharmacy Med Name: AMLODIPINE BESYLATE 5MG TABLETS] 90 Tablet 0 Sig: Take 1 Tablet by mouth daily. Calcium-Channel Blockers Protocol Passed - 07/12/2023 5:35 AM Passed - BP on record in the past year Clinician-entered: BP Readings from Last 3 Encounters: 05/13/23 136/66 04/16/23 144/65 10/25/22 170/88 Patient-entered: No data recorded Passed - Visit with relevant provider in past 12 months or upcoming 90 days Recent Visits Date Type Provider Dept 05/13/23 Office Visit Charlie Abreu MD [facility] 04/16/23 Office Visit Charlie Abreu MD [facility] 10/25/22 Office Visit Ry Shell [facility] 09/30/22 Office Visit [facility] 09/26/22 Office Visit Tyra Simeon APRN, [facility] Showing recent visits within past 365 days and meeting all other requirements Future Appointments No visits were found meeting these conditions. Showing future appointments within next 90 days and meeting all other requirements documented in this encounter Plan of Treatment Upcoming Encounters Date Type Department Care Team (Late st Contact Info) Description 05/05/2024 1:45 PM HEAD LOADER Office Visit [facility] - Family Medicine - [place] [address] [place] [address] Charlie Abreu MD [address] [address] documented as of this encounter Goals Goal Patient Goal Type Associated Problems Recent Progress Patient-Stated? Author Find Help In My Community Patient Goals On track( 024 9:36 AM CDT) Yes Iris Christopher, PADMINI Note: Follow Up Date: Week of 11/10/23 - follow-up on any referrals for help I am given SW Numerical Tool Programmer will mail food pantry, utility assistance resources [...] reports she plans to reach out to [employer] in [place] for utility help/food pantry and reach out to [facility] for possible help on car repair. Encouraged patient to use resources as needed. Patient has not yet received [facility] free ride bus pass that SHILPA ENNIS helped her apply for. SHILPA ENNIS emailed contact at [facility] asking about status of bus pass card. 07/03/23 - Patient received her [facility] free ride bus pass yesterday. Educated her on new pérez program for [employer] and made email referral to Jasmin [place] at [facility]. documented as of this encounter Visit Diagnoses Not on filedocumented in this encounter Additional Health Concerns Assessment Noted Time PHQ-9 Depression Total Score: 9 06/02/19 24 2:02 PM HEAD LOADER documented as of this encounter Care Teams Sales Assistant Entertainment And Media Relationship Specialty Start Date End Date Charlie Abreu MD [address] [address] PCP - General Family Medicine 05/08/18 Kathrin Cruz MD [address] [place] [address] Consulting Physician Family Medicine 07/04/17 Iris Christopher LSW [place] Cryptologic Technician Operator/Analyst Numerical Tool Programmer 05/16/23 11/07/23 documented as of this encounter
--- OUTSIDE RECORDS SUMMARY | 2024-04-29 16:48 | XMS_ITS | Referral Summary ---
Author Organization [facility] Address [address] [place] [address] Care Team Providers Care Inter Com Servicer Name Role Phone Charlie Abreu MD Primary Care Provider [phone] Source Comments [facility],non-owned Affiliates and Associated Physician Practices is amultiple site organization consisting of ambulatory clinics and hospital sitesin [place], [place], [place] and [place]. This disclosure is being madepursuant to the Care Everywhere program and may not contain all information available regarding this patient. Last updated 17.[facility] Allergies Active Allergy Reactions Criticality Noted Date [...] Comments Blood Pressure 190/90 04/28/2019 12:55 PM AIRPLANE AND ENGINE INSPECTOR Pulse 100 04/28/2019 12:55 PM AIRPLANE AND ENGINE INSPECTOR Temperature 36.4 ??C (97.5 ??F) 04/28/2019 12:[address] Respiratory Rate 16 05/18/2018 1:58 PM AIRPLANE AND ENGINE INSPECTOR Oxygen Saturation 100% 05/18/2018 1:58 PM AIRPLANE AND ENGINE INSPECTOR Inhaled Oxygen Concentration - - Weight 73 kg (161 lb) 04/28/2019 12:55 PM AIRPLANE AND ENGINE INSPECTOR Height 166.4 cm (5' 5.5 ) 04/28/2019 12:55 PM CS T Body Mass Index 26.38 04/28/2019 12:55 PM AIRPLANE AND ENGINE INSPECTOR Plan of Treatment Not on file Procedures Procedure Name Priority Date/Time Associated Diagnosis Comments COMPREHENSIVE METABOLIC PANEL Routine 10/14/2014 2:30 PM CDT from Last 3 Months or Most Recently Relevant to Health Maintenance Results * (ABNORMAL) COMPREHENSIVE METABOLIC PANEL (10/14/2014 2:30 PM CDT) BUN 10 7 - 26 mg/dL [facility] Creatinine 1.0 0.6 - 1.2 mg/dL [facility] Sodium 138 136 - 145 mmol/L [facility] Potassium 3.6 3.5 - 4.5 mmol/L [facility] Chloride 105 98 - 107 mmol/L [facility] CO2 25 22 - 29 mmol/L [facility] Glucose 87 70 - 115 mg/dL [facility] Calcium 9.3 8.4 - 10.2 mg/dL [facility] Protein Total 6.9 6.0 - 8.3 g/dL [facility] Albumin 3.5 3.4 - 5.0 g/dL [facility] Bilirubin Total 0.3 0.2 - 1.2 mg/dL [facility] Alkaline Phosphatase 72 40 - 150 Units/L [facility] ALT 8 0 - 55 Units/L [facility] AST 13 5 - 34 Units/L [facility] Anion Gap 12 8 - 18 [facility] BUN/Creatinine Ratio 10 7 - 23 [facility] Osmolality Calculated 270 270 - 300 mOsm/kg [facility] Albumin/Globulin Ratio 1.0(L) 1.1 - 2.3 [facility] eGFR 60(L) >60 mL/min/1.7 3 m2 [facility] Blood specimen (specimen) BLOOD SPECIMEN / Unknown 10/14/2014 2:30 PM CDT 10/14/2014 3:01 PM CDT Sugar Rodriguez MD LAB - CHEM ISTRY ORDERABLES [facility] [address] [place] [address] from Last 3 Months or Most Recently Relevant to Health Maintenance Care Teams Inter Com Servicer Relationship Specialty Start Date End Date Charlie Abreu MD [facility] - General 05/27/18
--- OUTSIDE RECORDS SUMMARY | 2024-04-29 16:50 | XMS_ITS | Referral Summary ---
Author Organization [facility] Address [address] [place] [address] Care Team Providers Care Manager Talent Acquisition Name Role Phone Galindo Lopez MD Primary Care Provider Allergies Active Allergy Reactions Criticality Noted Date Comments Cephalexin Meloxicam Other (See comments) Low 06/20/2017 Heart palpitations Medications ibuprofen (ADVIL,MOTRIN) 800 mg tablet take 1 tablet by oral route 3 times every day with food 0 0 01/05/2016 Active buPROPion XL (WELLBUTRIN XL) 300 mg 24 hr tablet 10/31/[address] (CYMBALTA) 60 mg capsule 120 mg daily. 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 Gender Identity Not on file Sexual Orientation Not on file Last Filed Vital Signs Vital Sign Reading Time Taken Comments Blood Pressure 144/92 06/20/2017 8:56 AM CDT Pulse 97 06/20/2017 8:56 AM CDT Temperature 37.1 ??C (98.7 ??F) 06/20/2017 8:31 AM CD T Respiratory Rate 17 06/20/2017 8:56 AM CDT Oxygen Saturation 100% 06/20/2017 8:56 AM CDT Inhaled Oxygen Concentration - - Weight 70.2 kg (154 lb 12.8 oz) 018 11:26 AM LANDFILL GAS COLLECTION SYSTEM OPERATOR Height 168.9 cm (5' 6.5 ) 04/09/2017 11 :26 AM LANDFILL GAS COLLECTION SYSTEM OPERATOR Body Mass Index 24.61 04/09/2017 11:26 AM LANDFILL GAS COLLECTION SYSTEM OPERATOR Plan of Treatment Not on file Insurance [facility] Care Teams Manager Talent Acquisition Relationship Specialty Start Date End Date Galnido Lopez MD [address] [facility] [address] [address] PCP - General 02/06/18
--- OUTSIDE RECORDS SUMMARY | 2024-04-29 16:51 | XMS_ITS | Clinical Summary ---
Author Organization [facility] Address [address] [place] [address] Care Team Providers Care Veneer Splicer Name Role Phone Galindo Lopez MD Primary [...] 06/20/2017 S/P right rotator cuff repair 04/09/2017 Surgical History Surgery Date Site/Laterality Comments SHOULDER ARTHROSCOPY Medical History Medical History Date Comments Hypertension Fibromyalgia Anxiety Family History Medical History Relation Name Comments Heart disease Mother Stroke Mother Relation Name Status Comments Mother Social History Tobacco Use Types Packs/Day Years Used Date Smoking Tobacco: Every Day Smokeless Tobacco: Never Comments Unknown Sex and Gender Information Value Date Recorded Sex Assigned at Not on file Legal Sex Female 9:55 AM BROOMMAKING SUPERVISOR Gender Identity Not on file Sexual Orientation Not on file Obstetrics History Last Filed Vital Signs Vital Sign Reading Time Taken Comments Blood Pressure 144/92 06/20/2017 8:56 AM CDT Pulse 97 06/20/2017 8:56 AM CDT Temperature 37.1 ??C (98.7 ??F) 06/20/2017 8:31 AM CD T Respiratory Rate 17 06/20/2017 8:56 AM CDT Oxygen Saturation 100% 06/20/2017 8:56 AM CDT Inhaled Oxygen Concentration - - Weight 70.2 kg (154 lb 12.8 oz) 018 11:26 AM BROOMMAKING SUPERVISOR Height 168.9 cm (5' 6.5 ) 04/09/2017 11 :26 AM BROOMMAKING SUPERVISOR Body Mass Index 24.61 04/09/2017 11:26 AM BROOMMAKING SUPERVISOR Plan of Treatment Not on file Insurance [facility] Care Teams Veneer Splicer Relationship Specialty Start Date End Date Galindo Lopez MD [address] [facility] [address] [address] PCP - General 02/06/18
[2024-04-29 17:12] VITALS: BP 156/89; PULSE 96; RESP 20; TEMP 36.4; O2SAT 100
--- NOTE | 2024-04-29 17:48 | ED_ITS ---
HPI - URI/Sore Throat General Chief Complaint: Upper Respiratory Infection Stated Complaint: sinus infection/exposed to whooping cough Time Seen by Provider: 04/29/24 17:48 History of Present Illness HPI Narrative: 53 y/o female presented for c/o nasal congestion and facial pressure, sore throat, and ear pressure for over one week. states she had similar symptoms about 2 weeks ago. Denies n/v/d/f/c. Endorses exposure to whooping cough. Related Data Home Medications ?Medication ?Instructions ?Recorded ?Confirmed ?Last Taken ?Type duloxetine 60 mg capsule,delayed 60 mg PO DAILY 09/03/19 04/29/24 Unknown History release losartan 100 1 tablet PO DAILY 02/16/23 04/29/24 Unknown History mg-hydrochlorothiazide 25 mg tablet Allergies Allergy/AdvReac Type Severity Reaction Status Date / Time cephalexin Allergy Anaphylaxis Verified 04/29/24 17:18 meloxicam Allergy Unknown Verified 04/29/24 17:18 Review of Systems Review of Systems: per HPI [facility] Past Medical History Medical History Fracture of left hand Anxiety and depression Osteoarthritis Surgical History Surgical History S/P rotator cuff repair Social History Social History Smoking packs per day: 0.5 Smoking cigarettes per day: 10.0 Years smoked: 30 Smoking pack-years: 15.00 Smoking status: Current every day smoker Tobacco type: cigarettes Living arrangements: with family Exam Narrative: GENERAL: well-appearing, no acute distress. EYES: conjunctivae clear ENT: Mucous membranes moist. TMs pearly myles with normal light reflex bilaterally; no tragal tenderness. Oropharynx not erythematous without lesions. Tonsils not enlarged and without exudate. No drooling, no hoarseness, no trismus, uvula midline. No tripod positioning, hot potato voice, or soft palate swelling. NECK: Supple. No lymphadenopathy CHEST: Clear to auscultation, breath sounds equal. No respiratory distress, speaks in full sentences. HEART: Regular rate and rhythm. No murmur heard. SKIN: Warm, dry, no rash. NEURO: Alert and oriented x3. Course Course Emergency Course: Patient is aware of diagnosis, understands and agrees to treatment plan. Anticipatory guidance given. Patient agrees to follow-up as directed and is aware of reasons to seek care at the emergency department. Portions of this record may have been created with voice recognition software Level of Care: Express Care Visit Vital Signs Vital signs: Vital Signs Temperature 97.6 F 04/29/24 17:12 Pulse Rate 96 04/29/24 17:12 Respiratory Rate 20 04/29/24 17:12 Blood Pressure 156/89 H 04/29/24 17:12 Pulse Oximetry 100 04/29/24 17:12 Oxygen Delivery Room Air 04/29/24 17:12 Temperature 97.6 F 04/29/24 17:12 Pulse Rate 96 04/29/24 17:12 Respiratory Rate 20 04/29/24 17:12 Blood Pressure 156/89 H 04/29/24 17:12 Pulse Oximetry 100 04/29/24 17:12 Oxygen Delivery Room Air 04/29/24 17:12 MDM - URI/Sore Throat MDM Narrative Medical decision making narrative: Discussed physical exam findings.Negative flu and COVID. Pt reports exposure to whooping cough. Advised supportive measures and signs/symptoms to go to the ER. Pt is appropriate for outpt treatment and f/u. Differential Diagnosis Differential diagnosis: Likely upper respiratory infection, otitis media, sinusitis, viral infection, bronchitis, influenza, pharyngitis and other Discharge Plan Discharge Clinical Impression: Sinusitis Qualifiers: Sinusitis location: frontal Chronicity: acute Recurrence: non-recurrent Qualified Code(s): J01.10 - Acute frontal sinusitis, unspecified Patient Disposition: Home, Self-Care Condition: Stable Instructions: Antibiotic Form, Pertussis (ED), Rhinosinusitis (ED) Additional Instructions: Flu and COVID negative. Recommendations: Flonase spray and Zyrtec (or Claritin/Jaquelin) over the counter Cough syrup may cause drowsiness; avoid driving or take it at night time. Tylenol 1000mg every 8 hours as needed for pain Symptomatic treatment includes: rest, fluids, and increase humidity of the air at home. Follow up with your primary care provider in 1 week. Go to the ER for worsening symptoms or concerns. Patient Language: Peruvian Prescriptions: New azithromycin [Zithromax Z-Dwight] 250 mg tablet See Rx Instructions .ROUTE .COMPLEX Qty: 6 0RF Rx Instructions: For 250 mg dose pack: take 500 mg today (day 1), then 250 mg for 4 days (days 2-5) No Action prednisone 20 mg tablet See Rx Instructions .ROUTE .COMPLEX Qty: 9 0RF Rx Instructions: Take 40mg x3 days, 20mg x3 days doxycycline monohydrate 100 mg tablet 100 mg PO BID 10 Days Qty: 20 0RF mometasone 50 mcg/actuation spray,non-aerosol 2 spray intranasal DAILY Qty: 17 0RF Rx Instructions: administer into each nostril twice daily for 5 days; then administer into each nostril once a day for 5 days duloxetine 60 mg capsule,delayed release(DR/EC) 60 mg PO DAILY losartan-hydrochlorothiazide 100-25 mg Tablet 1 tablet PO DAILY Follow-up/Referrals: Lois,Charlie Victoria MD [Primary Care Provider] - Time of Disposition: 17:56
[2024-04-29 17:53] LABS: EDCOVIDSCREEN Negative (Negative); EDINFLUASCREEN Negative (Negative); EDINFLUBSCREEN Negative (Negative)
== END 2024-04-29 18:00 | disposition home or self-care (01) ==
PROVIDERS: Emergency Provider Nurse Practitioner Family; PCP Internal Medicine
DX: J01.10 Acute frontal sinusitis, unspecified (principal); F41.8 Other specified anxiety disorders; F17.210 Nicotine dependence, cigarettes, uncomplicated; Z20.822 Contact with and (suspected) exposure to COVID-19
CPT/HCPCS: 87426; 87804; 99213; G0463

== ENCOUNTER 2024-09-11 19:30 | Emergency (ER) | payer OTHER, SELFPAY ==
--- OUTSIDE RECORDS SUMMARY | 2024-09-11 19:33 | XMS_ITS | Clinical Summary ---
Author Organization [facility] [employer] Address [address] [address] Care Team Providers Care Sheet Metal Engineer Name Role Phone Charlie Abreu MD Primary Care Provider [phone] Source Comments [facility] [employer],non-owned Affiliates and Associated Physician Practices is amultiple site organization consisting of ambulatory clinics and hospital sitesin [place], [place], [place] and [place]. This disclosure is being madepursuant to the Care Everywhere program and may not contain all information available regarding this patient. Last updated 17.[facility] [employer] Allergies Active Allergy Reactions Criticality Noted Date Comments Allergy Itching,Rash Medium 10/04/2014 Uncaria Tomentosa, Cats Claw Other Low 10/04/2014 EYES SWOLLEN SHUT Cephalexin Anaphylaxis High 10/04/2014 Meloxicam Other,Palpitations High 07/02/2017 Pollen Extract Itching Low 10/04/2014 Medications * Be aware that medications may not be up to date on this document. Alwaysverify current medications with the patient. DULoxetine (CYMBALTA) 60 MG capsule Take 120 mg by mouth once daily Active traZODone (DESYREL) 100 MG tablet Take 100 mg by mouth at bedtime 04/10/2018 Active levonorgestrel (MIRENA) 20 MCG/24HR IUD Active nabumetone (RELAFEN) 750 MG tablet Take 1 tablet by mouth 2 times daily 60 tablet 2 04/28/2019 Active amitriptyline (ELAVIL) 10 MG tabletIndicatio ns:Fibromyalgia TAKE 1 TABLET BY MOUTH EVERY EVENING [...] drink = 0.6 oz pur e alcohol) Comments No Sex and Gender Information Value Date Recorded Sex Assigned at Not on file Legal Sex Female 5:38 PM CHANGE HOUSE ATTENDANT Gender Identity Not on file Sexual Orientation Not on file Last Filed Vital Signs Vital Sign Reading Time Taken Comments Blood Pressure 190/90 04/28/2019 12:55 PM CHANGE HOUSE ATTENDANT Pulse 100 04/28/2019 12:55 PM CHANGE HOUSE ATTENDANT Temperature 36.4 C (97.5 F) 04/28/2019 12:55 PM CHANGE HOUSE ATTENDANT Respiratory Rate 16 05/18/2018 1:58 PM CHANGE HOUSE ATTENDANT Oxygen Saturation 100% 05/18/2018 1:58 PM CHANGE HOUSE ATTENDANT Inhaled Oxygen Concentration - - Weight 73 kg (161 lb) 04/28/2019 12:55 PM CHANGE HOUSE ATTENDANT Height 166.4 cm (5' 5.5) 04/28/2019 12:55 PM CS T Body Mass Index 26.38 04/28/2019 12:55 PM CHANGE HOUSE ATTENDANT Plan of Treatment Health Maintenance Due Date Last Done Comments COLOGUARD (AGES 45-75) - COLON CA SCREENING 1968 COLON MONITORING 1968 COLONOSCOPY - COLON CA SCREENING 1968 CT COLONOGRAPHY - COLON CA SCREENING 1968 Colorectal Cancer Screening 1968 FIT - COLON CA SCREENING 1968 FLEX SIG - COLON CA SCREENING 1968 LIPID TESTING 1968 MAMMOGRAM 1968 HIV SCREENING 07/22/1983 HEPATITIS C SCREENING 07/17/1986 DTAP/TDAP/TD VACCINES (1 - Tdap) 07/22/1987 HEPATITIS B VACCINE (1 of 3 - 19+ 3-dose series) 07/22/1987 PNEUMOCOCCAL VACCINE 50+ (1 of 2 - PCV) 07/22/1987 ZOSTER VACCINE (1 of 2) 2018 SCREENING FOR DIABETES 11/17/2020 8, 11/17/2017, 10/14/2014 COVID-19 VACCINE ( season) 2023 DEPRESSION SCREENING 03/31/2024 INFLUENZA VACCINE (Season Ended) 2024 12/18/2018, 01/27/2018, 01/08/2017, Additional history exists HIB VACCINE Aged Out No longer eligi ble based on patient's age to complete this topic HPV VACCINE Aged Out No longer eligi ble based on patient's age to complete this topic MENINGOCOCCAL (Group B) VACCINE SHARED DECISION-MAKING Aged Out No longer eligible based on patient's age to complete this topic MENINGOCOCCAL GROUPS A/C/Y/W VACCINE Aged Out No longer eligible based on patient's age to complete this topic Procedures Procedure Name Priority Date/Time Associated Diagnosis Comments COMPREHENSIVE METABOLIC PANEL Routine 10/14/2014 2:30 PM CDT from Last 3 Months or Most Recently Relevant to Health Maintenance Results * (ABNORMAL) COMPREHENSIVE METABOLIC PANEL (10/14/2014 2:30 PM CDT) BUN 10 7 - 26 mg/dL [facility] Creatinine 1.0 0.6 - 1.2 mg/dL [facility] Sodium 138 136 - 145 mmol/L [facility] Potassium 3.6 3.5 - 4.5 mmol/L [facility] Chloride 105 98 - 107 mmol/L [facility] CO2 25 22 - 29 mmol/L [facility] Glucose 87 70 - 115 mg/dL [facility] Calcium 9.3 8.4 - 10.2 mg/dL [facility] Protein Total 6.9 6.0 - 8.3 g/dL [facility] Albumin 3.5 3.4 - 5.0 g/dL [facility] Bilirubin Total 0.3 0.2 - 1.2 mg/dL [facility] Alkaline Phosphatase 72 40 - 150 Units/L [facility] ALT 8 0 - 55 Units/L [facility] AST 13 5 - 34 Units/L [facility] Anion Gap 12 8 - 18 [facility] BUN/Creatinine Ratio 10 7 - 23 [facility] Osmolality Calculated 270 270 - 300 mOsm/kg [facility] Albumin/Globulin Ratio 1.0(L) 1.1 - 2.3 [facility] eGFR 60(L) >60 mL/min/1.7 3 m2 [facility] Blood specimen (specimen) BLOOD SPECIMEN / Unknown 10/14/2014 2:30 PM CDT 10/14/2014 3:01 PM CDT Sugar Rodriguez MD LAB - CHEMISTRY OR DERABLES Final Result [facility] [address] [phone] from Last 3 Months or Most Recently Relevant to Health Maintenance Insurance [facility] Care Teams Sheet Metal Engineer Relationship Specialty Start Date End Date Charlie Abreu MD PCP - General 05/27/18
--- OUTSIDE RECORDS SUMMARY | 2024-09-11 19:33 | XMS_ITS | Encounter Summary ---
Author Organization [facility] Address [address] [place] [address] Phone Care Team Providers Care Change Analyst Name Role Phone Kathrin Cruz MD Unavailable Charlie Abreu MD Primary Care Provider [phone] Iris Christopher HAY SORTER Unavailable Unavailab le Reason for Visit * Reason Comments Medication Refill Encounter Details Date Type Department Care Team (Late st Contact Info) Description 12/16/2020 [facility]ill [facility] [address] [place] [id number] Charlie Abreu MD [address] [address] Medication Refill Social History Tobacco Use Types [...] Care Team (Late st Contact Info) Description 12/09/2024 1:30 PM CDT Office Visit [facility] - Family Medicine - [place] [address] [place] [address] Charlie Abreu MD [address] [address] documented as of this encounter Visit Diagnoses Diagnosis Anxiety Anxiety state, unspecified Depression, unspecified depression type documented in this encounter Additional Health Concerns Assessment Noted Time PHQ-9 Depression Total Score: 0 02/23/20 20 2:57 PM NATURAL SCIENCES DEPARTMENT CHAIR documented as of this encounter Care Teams Change Analyst Relationship Specialty Start Date End Date Charlie Abreu MD [address] [address] PCP - General Family Medicine 05/08/18 Kathrin Cruz MD [address] [place] [address] Consulting Physician Family Medicine 07/04/17 Iris Christopher LSW [place] Gifted Teacher Linking Machine Operator 05/16/23 11/07/23 documented as of this encounter
--- OUTSIDE RECORDS SUMMARY | 2024-09-11 19:33 | XMS_ITS | Encounter Summary ---
Author Organization [facility] Address [address] [place] [address] Phone Care Team Providers Care Cook Supervisor Name Role Phone Kathrin Cruz MD Unavailable Charlie Abreu MD Primary Care Provider [phone] Iris Christopher VENEER TRIMMER Unavailable Unavailab le Reason for Visit * Reason Comments Medication Refill Encounter Details Date Type Department Care Team (Late st Contact Info) Description 07/12/2023 Refill [facility] - Family Medicine [facility] [address]2 [place] [id number] Charlie Abreu MD #[address] [address] Medication Refill Social History Tobacco Use Types Packs/Day Years Used Date Smoking Tobacco: Every Day Cigarettes 1 30 Smokeless Tobacco: Never Alcohol Use Standard Drinks/Week Comments No 0 (1 standard drink = 0.6 oz pur e alcohol) [facility] Utilities Answer Date Recorded In the past 12 months has [employer] electric, gas, oil, or water company threatened to shut off services in your home? Yes 06/02/2023 Social Connection and Isolation Panel Answer Date Recorded In a typical week, how many times do you talk on the phone with family, friends, or neighbors? Twice a week 06/02/2023 How often do you get together with friends or re latives? Once a week 06/02/2023 How often do you attend druze or gnosticism serv ices? Never 06/02/2023 Do you belong to any clubs o r organizations such as druze groups, unions, fraternal or athletic groups, or [...] Total Score - Questions 1-9 12 03/31 [facility] of Occupat ional Health - Occupational Stress [...] place to sleep or slept in a mcfp (including now)? No 06/02/2023 Education Answer Date [...] PM CDT Medication(s) refilled and signed per [facility] Chronic Medication Refill Standing Order for Pediatricand [...] [place] 10/25/22 Office Visit Ry Shell MD [facility] [place] 09/30/22 Office Visit Charlie Abreu MD [facility] [place] 09/26/22 Office Visit Tyra Simeon APRN, SITE HEAD [facility] Showing recent visits within past 365 days and meeting all other requirements Future Appointments No visits were found meeting these conditions. Showing future appointments within next 90 days and meeting all other requirements documented in this encounter Plan of Treatment Upcoming Encounters Date Type Department Care Team (Late st Contact Info) Description 12/09/2024 1:30 PM CDT Office Visit [facility] - Family Medicine - [place] [address] [place] [address] Charlie Abreu MD [address] [address] documented as of this encounter Goals Goal Patient Goal Type Associated Problems Recent Progress Patient-Stated? Author Find Help In My Community Patient Goals On track( 024 9:36 AM CDT) Yes Iris Christopher, VENEER TRIMMER Note: Follow Up Date: Week of 11/10/23 - follow-up on any referrals for help I am given SW Gym Instructor will mail food pantry, utility assistance resources [...] reports she plans to reach out to [employer] in [place] for utility help/food pantry and reach out to [employer] for possible help on car repair. Encouraged patient to use resources as needed. Patient has not yet received [facility] free ride bus pass that SHILPA ENNIS helped her apply for. SHILPA ENNIS emailed contact at [facility] asking about status of bus pass card. 07/03/23 - Patient received her [facility] free ride bus pass yesterday. Educated her on new pérez program for [employer] and made email referral to Jasmin Thomas at [facility]. documented as of this encounter Visit Diagnoses Not on filedocumented in this encounter Additional Health Concerns Assessment Noted Time PHQ-9 Depression Total Score: 9 06/02/19 24 2:02 PM CAREER AND TRANSITION TEACHER documented as of this encounter Care Teams Cook Supervisor Relationship Specialty Start Date End Date Charlie Abreu MD #[address] [address] PCP - General Family Medicine 05/08/18 Kathrin Cruz MD [address] [place] [address] Consulting Physician Family Medicine 07/04/17 Iris Christopher LSW [place] Employee Development Manager Gym Instructor 05/16/23 11/07/23 documented as of this encounter
--- OUTSIDE RECORDS SUMMARY | 2024-09-11 19:33 | XMS_ITS | Clinical Summary ---
Author Organization [facility] Address [address] [place] [address] Care Team Providers Care Admittance Attendant Name Role Phone Galindo Lopez MD Primary [...] on file Legal Sex Female 9:55 AM DIRECTOR OF RECREATION THERAPY Gender Identity Not on file Sexual Orientation Not on file Obstetrics History Last Filed Vital Signs Vital Sign Reading Time Taken Comments Blood Pressure 144/92 06/20/2017 8:56 AM CDT Pulse 97 06/20/2017 8:56 AM CDT Temperature 37.1 C (98.7 F) 06/20/2017 8:31 AM CDT Respiratory Rate 17 06/20/2017 8:56 AM CDT Oxygen Saturation 100% 06/20/2017 8:56 AM CDT Inhaled Oxygen Concentration - - Weight 70.2 kg (154 lb 12.8 oz) 018 11:26 AM DIRECTOR OF RECREATION THERAPY Height 168.9 cm (5' 6.5) 04/09/2017 11 :26 AM DIRECTOR OF RECREATION THERAPY Body Mass Index 24.61 04/09/2017 11:26 AM DIRECTOR OF RECREATION THERAPY Plan of Treatment Not on file Insurance [facility] Care Teams Admittance Attendant Relationship Specialty Start Date End Date Galindo Lopez MD [address] [facility] [address] [address] PCP - General 02/06/18
--- OUTSIDE RECORDS SUMMARY | 2024-09-11 19:33 | XMS_ITS | Encounter Summary ---
Author Organization [facility] Address [facility] [place] [address] Care Team Providers Care Valve Technician Name Role Phone Charlie Abreu MD Primary Care Provider [phone] Reason for Visit * Reason Onset Date Comments MEDICATION REFILL 07/23/2018 Encounter Details Date Type Department Care Team (Late st Contact Info) Description 07/23/2018 Refill [facility] [address] [place] [address] Briana Larson MD [address] [place] [address] MEDICATION REFILL Social History Tobacco Use Types Packs/Day Years Used Date Smoking Tobacco: Every Day Cigarettes 0.5 30 Smokeless Tobacco: Never Alcohol Use Standard Drinks/Week Comments No 0 (1 standard drink = 0.6 oz pur e alcohol) Comments No Sex and Gender Information Value Date Recorded Sex Assigned at Not on file 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
--- OUTSIDE RECORDS SUMMARY | 2024-09-11 19:33 | XMS_ITS | Encounter Summary ---
Author Organization [facility] Address [address] [place] [address] Phone Care Team Providers Care Airport Driver Name Role Phone Kathrin Cruz MD Unavailable Charlie Abreu MD Primary Care Provider [phone] Iris Christopher ONLINE RETAILER Unavailable Unavailab le Reason for Visit * Reason Comments Medication Refill Encounter Details Date Type Department Care Team (Late st Contact Info) Description 04/25/2023 Refill [facility] - Family Medicine [facility] [address] [place] [address] Ry Shell MD [address] [place] [address] Medication Refill Social History Tobacco Use Types Packs/Day Years Used Date Smoking Tobacco: Every Day Cigarettes 1 30 Smokeless Tobacco: Never Alcohol Use Standard Drinks/Week Comments No 0 (1 standard drink = 0.6 oz pur e alcohol) [facility] Utilities Answer Date Recorded In the past 12 months has [employer] electric, gas, oil, or water company threatened to shut off services in your home? Yes 04/15/2023 Social Connection and Isolation Panel Answer Date Recorded Frequency of Communication with Friends and Fami ly Not on file 04/15/2023 Frequency of Social Gatherings with Friends and Family Not on file 04/15/2023 How often do you attend yazidism or roman catholic serv ices? Never 04/15/2023 Do you belong to any clubs o r organizations such as yazidism groups, unions, fraternal or athletic groups, or [...] Total Score - Questions 1-9 12 03/31 [facility] of Occupat ional Health - Occupational Stress [...] place to sleep or slept in a assisted (including now)? No 04/15/2023 Education Answer Date [...] Last 3 Encounters: 04/16/23 144/65 10/25/22 170/88 07/03/23 130/78 Patient-entered: No data recorded Passed - No positive test in the past 12 months or most recent test was negative Passed - Visit with relevant provider in past year or upcoming 90 days Recent Visits Date Type Provider Dept 04/16/23 Office Visit Charlie Abreu MD [facility] 10/25/22 Office Visit Ry Shell MD [facility] 09/30/22 Office Visit [facility] 09/26/22 Office Visit Tyra Simeon APRN, SOFTWARE TEAM LEADER [facility] Showing recent visits within past 365 days and meeting all other requirements Future Appointments Date Type Provider Dept 05/13/23 Appointment Charlie Abreu MD [facility] Showing future appointments within next 90 days and meeting all other requirements Passed - No 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
--- OUTSIDE RECORDS SUMMARY | 2024-09-11 19:33 | XMS_ITS | Referral Summary ---
Author Organization [facility] Address [address] [place] [address] Care Team Providers Care Emergency Operator Name Role Phone Galindo Lopez MD Primary [...] on file Legal Sex Female 9:55 AM SCABBLER Gender Identity Not on file Sexual Orientation [...] (154 lb 12.8 oz) 018 11:26 AM SCABBLER Height 168.9 cm (5' 6.5) 04/09/2017 11 :26 AM SCABBLER Body Mass Index 24.61 04/09/2017 11:26 AM SCABBLER Plan of Treatment Not on file Insurance [facility] Care Teams Emergency Operator Relationship Specialty Start Date End Date Galindo Lopez MD [address] [facility] [address] [address] PCP - General 02/06/18
--- OUTSIDE RECORDS SUMMARY | 2024-09-11 19:33 | XMS_ITS | Clinical Summary ---
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 [address] [place] [address], [facility] [address] [place] [address] from Last 3 Months or Most Recently Relevant to Health Maintenance Insurance MEDICAID [place] Care Teams Help Desk Assistant Relationship Specialty Start Date End Date Charlie Abreu MD [address] [address] PCP - General Family Medicine 05/08/18 Kathrin Cruz MD [address] [place] [address] Consulting Physician Family Medicine 07/04/17
--- OUTSIDE RECORDS SUMMARY | 2024-09-11 19:33 | XMS_ITS | Encounter Summary ---
Author Organization [facility] Address [address] [place] [address] Phone Care Team Providers Care Watch Technician Name Role Phone Kathrin Cruz MD Unavailable Charlie Abreu MD Primary Care Provider [phone] Iris Christopher VALUATION MANAGER Unavailable Unavailab le Reason for Visit * Reason Comments Medication Refill Encounter Details Date Type Department Care Team (Late st Contact Info) Description 06/16/2021 [facility]ill [facility] - [facility] [address] [place] [id number] Charlie Abreu MD [address] [address] Medication Refill Social History Tobacco Use Types [...] Description 12/09/2024 1:30 PM CDT Office Visit [facility] [address] [place] [id number] Charlie Abreu MD [address] [address] documented as of this encounter Visit Diagnoses Diagnosis Anxiety Anxiety state, unspecified Depression, unspecified depression type documented in this encounter Additional Health Concerns Assessment Noted Time PHQ-9 Depression Total Score: 0 02/23/20 20 2:57 PM CLINICAL DATA COORDINATOR documented as of this encounter Care Teams Watch Technician Relationship Specialty Start Date End Date Charlie Abreu MD [address] [address] PCP - General Family Medicine 05/08/18 Kathrin Cruz MD [address] [place] [address] Consulting Physician Family Medicine 07/04/17 Iris Christopher LSW [employer] Dies Maintenance Mechanic Technician 05/16/23 11/07/23 documented as of this encounter
--- OUTSIDE RECORDS SUMMARY | 2024-09-11 19:33 | XMS_ITS | Encounter Summary ---
Author Organization [facility] Address [address] [place] [address] Phone Care Team Providers Care Electrical Helper Name Role Phone Kathrin Cruz MD Unavailable [phone] Charlie Abreu MD Primary Care Provider [phone] Reason for Visit * Reason Comments Medication Refill Encounter Details Date Type Department Care Team (Late st Contact Info) Description 03/25/2024 Refill [facility] - Family Medicine [facility] [address] [place] [address] Charlie Abreu MD [address] [address] Medication Refill Social History Tobacco Use Types Packs/Day Years Used Date Smoking Tobacco: Every Day Cigarettes 1 30 Smokeless Tobacco: Never Alcohol Use Standard Drinks/Week Comments No 0 (1 standard drink = 0.6 oz pur e alcohol) [facility] Utilities Answer Date Recorded In the past 12 months has [employer] electric, gas, oil, or water company threatened [...] week 06/02/2023 How often do you attend congregation or mormon serv ices? Never 06/02/2023 Do you belong to any clubs o r organizations such as congregation groups, unions, fraternal or athletic groups, or [...] Total Score - Questions 1-9 12 03/31 [facility] - Occupational Stress Questionnaire Answer Date Recorded [...] place to sleep or slept in a prison (including now)? No 06/02/2023 Education Answer Date [...] RN - 03/29/2024 11:08 AM CST Done NT MANAGEMENT SPECIALIST * Telephone Encounter - Irene Girard MA - 03/26/2024 4:05 PM TALENT MANAGEMENT SPECIALIST Spoke with pt and schedule future ov. She stated she isn't taking this medication and that the pharmacy requested it. Please d/c from med list. NT MANAGEMENT SPECIALIST * Telephone Encounter - Jillian Catherine RN - 03/25/2024 10:47 AM CST Needs OV NT MANAGEMENT SPECIALIST * Telephone Encounter - Jillian Catherine RN [...] Dept 05/13/23 Office Visit Charlie Abreu MD [facility] 04/16/23 Office Visit Charlie Abreu MD [facility] Showing recent visits within past 365 days and meeting all other requirements Future Appointments No visits were found meeting these conditions. Showing future appointments within next 90 days and meeting all other requirements NT MANAGEMENT SPECIALIST documented in this encounter Plan of Treatment Upcoming Encounters Date Type Department Care Team (Late st Contact Info) Description 12/09/2024 1:30 PM CDT Office Visit [facility] - Family Medicine [facility] [address] [place] [address] Charlie Abreu MD [address] [address] documented as of this encounter Goals Goal Patient Goal Type Associated Problems Recent Progress Patient-Stated? Author Find Help In My Community Patient Goals On track( 024 9:36 AM CDT) Yes Iris Christopher LSW Note: Follow Up Date: Week of 11/10/23 - follow-up on any referrals for help I am given SW Electrical Prospecting Operator will mail food pantry, utility assistance resources [...] reports she plans to reach out to [employer] in [place] for utility help/food pantry and reach out to [facility] for possible help on car repair. Encouraged patient to use resources as needed. Patient has not yet received [facility] free ride bus pass that SHILPA ENNIS helped her apply for. SHILPA ENNIS emailed contact at [facility] asking about status of bus pass card. 07/03/23 - Patient received her [facility] free ride bus pass yesterday. Educated her on new pérez program for [employer] and made email referral to Jasmin Thomas at [facility]. documented as of this encounter Visit Diagnoses Not on filedocumented in this encounter Additional Health Concerns Assessment Noted Time PHQ-9 Depression Total Score: 9 06/02/19 24 2:02 PM TALENT MANAGEMENT SPECIALIST documented as of this encounter Care Teams Electrical Helper Relationship Specialty Start Date End Date Charlie Abreu MD [address] [address] PCP - General Family Medicine 05/08/18 Kathrin Cruz MD [address] [place] [address] Consulting Physician Family Medicine 07/04/17 documented as of this encounter
[2024-09-11 19:35] VITALS: BP 170/84; PULSE 100; RESP 16; TEMP 36.4; O2SAT 100
--- NOTE | 2024-09-11 19:48 | ED_ITS ---
HPI - Skin/Abscess/Foreign Bdy General Chief complaint: Skin/Abscess/Foreign Body Stated complaint: poison gayathri in eyes Time Seen by Provider: 09/11/24 19:30 Source: patient and RN notes reviewed Mode of arrival: ambulatory Limitations: no limitations History of Present Illness HPI narrative: 54-year-old female presents Express Care complaining of rash to bilateral eyelids and arms. Patient was doing yd work 2 days ago and got into poison gayathri. Patient reports having a rash on her arms and around her eyes. Patient denies any vision changes, eye pain, discharge, difficulty breathing, or any other symptoms. Patient is trying pxft-khw-wwjrhye eyedrops with some relief. Related Data Home Medications ?Medication ?Instructions ?Recorded ?Confirmed ?Last Taken ?Type duloxetine 60 mg capsule,delayed 60 mg PO DAILY 09/03/19 04/29/24 Unknown History release losartan 100 1 tablet PO DAILY 02/16/23 04/29/24 Unknown History mg-hydrochlorothiazide 25 mg tablet Allergies Allergy/AdvReac Type Severity Reaction Status Date / Time cephalexin Allergy Anaphylaxis Verified 09/11/24 19:39 meloxicam Allergy Unknown Verified 09/11/24 19:39 Review of Systems Review of Systems: CONSTITUTIONAL: Denies fever, chills, or sweats. EYES: Denies visual changes, eye redness redness, or discharge. Positive for eyelid swelling and redness. ENT: Denies rhinorrhea, congestion, sore throat, or otalgia. CARDIOVASCULAR: Denies chest pain, palpitations, or edema. RESPIRATORY: Denies cough or dyspnea. GASTROINTESTINAL: Denies abdominal pain, nausea, vomiting, or diarrhea. GENITOURINARY: Denies dysuria or hematuria. SKIN: Positive for itching or rash. MUSCULOSKELETAL: Denies back pain, joint pain, or myalgia. NEUROLOGIC: Denies headache, numbness, or weakness. PSYCHIATRIC: Denies anxiety or depression. All other systems reviewed are negative, except as documented in HPI. [facility] Past Medical History Medical History Fracture of left hand Anxiety and depression Osteoarthritis Surgical History Surgical History S/P rotator cuff repair Social History Social History (Reviewed 09/11/24 @ 20:30 by ANAY Zarate Smoking packs per day: 0.5 Smoking cigarettes per day: 10.0 Years smoked: 30 Smoking pack-years: 15.00 Smoking status: Current every day smoker Tobacco type: cigarettes Living arrangements: with family Comments At the time of my signature, I reviewed and agree with the nursing past medical, surgical, social, and family history. There is no relevant family history pertinent to the patient complaint. Exam Narrative: GENERAL: This is a well-nourished, well-developed adult, in no apparent distress. They are non ill-appearing, nontoxic appearing. HEAD: normocephalic, atraumatic. EYES: Sclera clear/white. Conjunctiva normal. Vision is grossly intact. Extraocular movements intact. Pupils PERRLA. Upper and lower eyelids or erythematous bilaterally. They are nontender and not hot to touch. There pruritic. EARS: External ears normal, auditory canals clear and without drainage, TMs normal without perforation. Hearing grossly intact. NOSE: External nose normal with no obvious nasal discharge, nasal turbinates without redness, no rhinorrhea. THROAT: Mucous membranes moist, posterior pharynx clear, without erythema or swelling. Uvula midline. NECK: Neck supple, non-tender without lymphadenopathy, masses or thyromegaly. CARDIOVASCULAR: Regular rate and rhythm without murmurs, gallops, or rubs. RESPIRATORY: Clear to auscultation. Breath sounds equal bilaterally. No wheezes, rales, or rhonchi. SKIN: Pruritic erythematous macular papular, vesicular rash patient is on bilateral arms. Rash is scattered throughout. No area of fluctuance, induration, exudate, or pain. NEURO: awake, alert, and oriented to person, place and time. There were no obvious focal neurologic abnormalities. EXTREMITIES: No joint tenderness, effusion, or edema noted. BACK: Nontender without deformity. Course Course Emergency Course: Portions of this record may have been created with voice recognition software Level of Care: Express Care Visit Vital Signs Vital signs: Vital Signs Temperature 97.5 F L 09/11/24 19:35 Pulse Rate 100 09/11/24 19:35 Respiratory Rate 16 09/11/24 19:35 Blood Pressure 170/84 H 09/11/24 19:35 Pulse Oximetry 100 09/11/24 19:35 Oxygen Delivery Room Air 09/11/24 19:35 Temperature 97.5 F L 09/11/24 19:35 Pulse Rate 100 09/11/24 19:35 Respiratory Rate 16 09/11/24 19:35 Blood Pressure 170/84 H 09/11/24 19:35 Pulse Oximetry 100 09/11/24 19:35 Oxygen Delivery Room Air 09/11/24 19:35 Reviewed MDM - Skin/Abscess/Foreign Bdy MDM Narrative Medical decision making narrative: Patient likely has contact dermatitis poison gayathri. Will prescribe prednisone taper. Patient denies any eye problems or vision changes. Discussed physical exam findings. Advised supportive measures and signs/symptoms to go to the ER. Pt is appropriate for outpt treatment and f/u. Differential Diagnosis Differential diagnosis: Likely cellulitis (Periorbital), contact dermatitis and other (Allergic conjunctivitis) Critical Care Time Critical Care Time Critical Care Time: No Discharge Plan Discharge Clinical Impression: Poison gayathri Patient Disposition: Home Condition: Stable Instructions: Poison Gayathri (ED) Additional Instructions: Take the prednisone as directed. Take it in the morning and take it with food. You may use gyyk-jos-txdjpyk Tecnu soap as directed on the bottle to help remove the oils from poison gayathri off your skin. You may use calamine lotion, camphor, hydrocortisone cream, Benadryl cream as needed for itchiness symptoms. You may use rvan-odk-huzatjr eyedrops or allergy eyedrops as needed for allergy symptoms of your eyes. You may also take Zyrtec or Claritin as needed for allergy ear itchiness symptoms. Follow-up PCP in 3-5 days. If you develop any worsening redness, swelling, discharge, fevers, breathing problems, or any other concerns please go to the ER immediately. Patient Language: Central African Prescriptions: New prednisone 10 mg tablet See Taper PO DIRECTED Qty: 42 0RF Taper: Prednisone Taper from 60 mg;12 days 60 mg DAILY for 2 Days and 0 Hour 50 mg DAILY for 2 Days and 0 Hour 40 mg DAILY for 2 Days and 0 Hour 30 mg DAILY for 2 Days and 0 Hour 20 mg DAILY for 2 Days and 0 Hour 10 mg DAILY for 2 Days and 0 Hour Rx Instructions: see taper instructions No Action duloxetine 60 mg capsule,delayed release(DR/EC) 60 mg PO DAILY losartan-hydrochlorothiazide 100-25 mg Tablet 1 tablet PO DAILY Follow-up/Referrals: Lois,Charlie Victoria MD [Primary Care Provider] - Time of Disposition: 19:45
== END 2024-09-11 20:12 | disposition home or self-care (01) ==
PROVIDERS: PCP Internal Medicine
DX: L23.7 Allergic contact dermatitis due to plants, except food (principal); F17.210 Nicotine dependence, cigarettes, uncomplicated; M19.90 Unspecified osteoarthritis, unspecified site
CPT/HCPCS: 99213; G0463

== ENCOUNTER 2024-12-30 16:22 | Emergency (ER) | payer OTHER, SELFPAY ==
--- OUTSIDE RECORDS SUMMARY | 2024-12-30 16:25 | XMS_ITS | Clinical Summary ---
Author Organization [facility] Address [address] [place] [address] Phone Care Team Providers Care Floor Coverings Salesperson Name Role Phone Kathrin Cruz MD Unavailable [phone] Charlie Abreu MD Primary Care Provider [phone] Allergies Active Allergy Reactions Criticality Noted Date [...] TWICE DAILY 180 Capsule 1 5 Active Active Problems Problem Noted Date Diagnosed Date Screening for breast cancer 05/26/2018 Screening for cervical cancer 05/26/2018 Physical exam, annual (Adult) 05/26/2018 Chronic right shoulder pain 05/26/2018 Screening for colon cancer 05/26/2018 Primary insomnia 05/26/2018 Fibromyalgia 03/31/2015 Depression 03/31/2007 Overview (07/04/2017): per patient depression disorder Anxiety 03/31/2007 Encounters Date Type Department Care Team Description 11/12/2024 Refill [facility] [address] [place] [address] Charlie Abreu MD Medication Refill [...] drink = 0.6 oz pur e alcohol) [facility] [employer] Software[employer] Answer Date Recorded In the past 12 months has [employer], [employer]), oil, or water [employer] threatened to shut off services in your home? Yes 05/03/2024 Social Connection and Isolation Panel Answer Date Recorded In a typical week, how many times do you talk on the phone with family, friends, or neighbors? More than three times a week 05/03/2024 How often do you get togethe r with friends or relatives? Once a week 05/03/2024 How often do you attend [facility] or pentecostal services? Never 05/03/2024 Do you belong to any clubs o r organizations such as mandaen groups, unions, fraternal or athletic groups, or [...] Total Score - Questions 1-9 0 07/29 [facility] [place] of Occupat ional Health - Occupational Stress [...] place to sleep or slept in a senior care (including now)? No 06/02/2023 Housing Stability Vital Sign Answer Alejandro e Recorded In the last 12 months, was t here a time when you were not able to pay the mortgage or rent on time? Yes 05/03/2024 In the past 12 months, how m any times have you moved where you were living? 0 05/03/2024 At any time in the past [address] [facility], were you homeless or living in a senior care (including now)? No 05/03/2024 Education Answer Date [...] 08/09/2024 1:06 PM CDT Plan of Treatment Health Maintenance Due Date Last Done Comments Hepatitis C Virus (HCV) Screening 1968 Hepatitis B Immunization (1 of 3 - 19+ 3-dose series) 07/22/1987 Pneumococcal Immunization (50+ years) (1 of 2 - PCV) 07/22/1987 Cologuard 2013 Immunochemical Fecal Occult Blood 2013 Lung Cancer Screening 2018 Zoster Immunization (1 of 2) 2018 Influenza Immunization (#1) 11/29/202403/31, 04/08/2022, 03/16/2020, Additional history exists SARS-COV-2 Immunization ( season) 2024 Mammogram 12/09/2024 12/10/2023, 08/30, 07/22/2018 Pap Smear 09/26/2025 09/26/2022 Cervical Cancer [...] referrals for help I am given SW Autos Disassembler will mail food pantry, utility assistance resources [...] reports she plans to reach out to [employer] in [place] for utility help/food pantry and reach out to [place] for possible help on car repair. Encouraged patient to use resources as needed. Patient has not yet received [facility] free ride bus pass that SHILPA ENNIS helped her apply for. SHILPA ENINS emailed contact at [facility] asking about status of bus pass card. 07/03/23 - Patient received her [facility] free ride bus pass yesterday. Educated her on new pérez program for [employer] and made email referral to Jasmin Thomas at [facility]. Procedures Procedure Name Priority Date/Time Associated Diagnosis Comments FRANSICO SCREENING BILATERAL DIGITAL W CAD W CAITLIN Routine 12/10/2023 2:30 PM CDT Visit for screening mammogram HUMAN PAPILLOMA VIRUS (HPV) Routine 09/26/2022 2:49 PM CDT Encounter for gynecological examination without abnormal finding Encounter for screening for human papillomavirus (HPV) PATHOLOGY CYTOLOGY WORSHIP LEADER Routine 09/26/2022 2:49 PM CDT Encounter for [...] is made to exams dated: 09/18/2021, 07/22/2018 [facility], and 10/20/2014 [facility]. BREAST TISSUE:There are scattered areas of fibroglandular [...] exam. Electronically signed by: Marilia bryan/angelica:12/11/2023 15:34:59 Executive Administrator(s): RT Xavi(R)(M), [facility] letter sent: Normal Exam Reading location: [facility] Mammogram BI-RADS: Category 1: Negative [...] is made to exams dated: 09/18/2021, 07/22/2018 [facility], and 10/20/2014 [facility]. BREAST TISSUE:There are scattered areas of fibroglandular [...] exam. Electronically signed by: Marilia bryan/angelica:12/11/2023 15:34:59 Executive Administrator(s): RT Xavi(R)(M), [facility] letter sent: Normal Exam Reading location: [facility] Mammogram BI-RADS: Category 1: Negative Charlie Abreu MD IMG MAMMO ORDERABLES Final Re sult * PATHOLOGY CYTOLOGY WORSHIP LEADER (09/26/2022 2:49 PM CDT) SPECIMEN ADEQUACY Satisfactory for evaluation. Endocervical/transf ormation zone component is present. 10/04/2022 1:16 PM CDT [facility] DESCRIPTIVE DIAGNOSIS NEGATIVE FOR INTRAEPITHELIAL LESIONS OR MALIGNANCY. 10/04/2022 1:16 PM CDT [facility] at 1316 CDT Automated Examination Analysis of this sample has been assisted by an automated imaging and review system ([employer] Systemsp Imaging System, [employer], [place], [place]). This case is further evaluated and finalized by a hearse driver and/or pathologist. 10/04/2022 1:16 PM CDT [facility] Disclaimer The PAP smear is a [...] unless clinically indicated. 10/04/2022 1:16 PM CDT [facility] Other CERVIX UTERI STRUCTURE / Unknown Non-Phlebotomy Collection / Unknown 09/26/2022 2:49 PM CDT 09/26/2022 2:50 PM CDT us Tyra Simeon APRN, [facility] PATHOLOGY/CYTOLOGY O RDERABLES Final Result [facility] [address] [place] [address], * HUMAN PAPILLOMA VIRUS (HPV) (09/26/2022 2:49 PM CDT) HPV OTHER HIGH RISK TYPES, PCR NEGATIVE NEGATIVE 09/27/2022 1:56 PM CDT [facility] Comment: The following Other High Risk [...] 16 NEGATIVE NEGATIVE 09/27/2022 1:56 PM CDT [facility] Comment: A negative high-risk HPV result [...] 18 NEGATIVE NEGATIVE 09/27/2022 1:56 PM CDT [facility] Comment: A negative high-risk HPV result [...] OR DIAGNOSTIC SCREENING 09/27/2022 1:56 PM CDT [facility] Other Non-Phlebotomy Collection / Unknown 09/26/2022 2:49 PM CDT 09/26/2022 2:50 PM CDT [facility] - 09/27/2022 1:56 PM CDT Performed by Real-Time Polymerase Chain Reaction (PCR) on the Trudy Blu 4800. This assay has been validated for use with post-aliquot samples from the [employer] T5000 processor. Tyra Simeon APRN, CNP LAB SEND OUTS Tran l Result [facility] [address] [place] [address], [facility] [address] [place] [address] from Last 3 Months or Most Recently Relevant to Health Maintenance Insurance MEDICAID [place] [facility]ICAID [facility] Care Teams Floor Coverings Salesperson Relationship Specialty Start Date End Date Charlie Abreu MD [address]2 [facility] [address] [id number] PCP - General Family Medicine 05/08/18 Kathrin Cruz MD [place] [address] Consulting Physician Family Medicine 07/04/17
--- OUTSIDE RECORDS SUMMARY | 2024-12-30 16:25 | XMS_ITS | Encounter Summary ---
Author Organization [facility] Address [address] [place] [address] Phone Care Team Providers Care Developer Evangelist Name Role Phone Kathrin Cruz MD Unavailable [phone] Charlie Abreu MD Primary Care Provider [phone] Reason for Visit * Reason Comments Medication Refill Encounter Details Date Type Department Care Team (Late st Contact Info) Description 03/25/2024 [facility]ill [facility] #2 [place] [address] Charlie Abreu MD [address] [address] Medication Refill Social History Tobacco Use Types Packs/Day Years Used Date Smoking Tobacco: Every Day Cigarettes 1 30 Smokeless Tobacco: Never Alcohol Use Standard Drinks/Week Comments No 0 (1 standard drink = 0.6 oz pur e alcohol) [facility] Utilities Answer Date Recorded In the past 12 months has [employer] electric, gas, oil, or water company threatened [...] week 06/02/2023 How often do you attend scientology or spiritism serv ices? Never 06/02/2023 Do you belong to any clubs o r organizations such as scientology groups, unions, fraternal or athletic groups, or [...] Total Score - Questions 1-9 12 03/31 [facility] - Occupational Stress Questionnaire Answer Date Recorded [...] RN - 03/29/2024 11:08 AM CST Done ICATION DEVELOPMENT TEAM LEAD * Telephone Encounter - Irene Girard MA - 03/26/2024 4:05 PM APPLICATION DEVELOPMENT TEAM LEAD Spoke with pt and schedule future ov. She stated she isn't taking this medication and that the pharmacy requested it. Please d/c from med list. ICATION DEVELOPMENT TEAM LEAD * Telephone Encounter - Jillian Catherine RN - 03/25/2024 10:47 AM CST Needs OV ICATION DEVELOPMENT TEAM LEAD * Telephone Encounter - Jillian Catherine RN [...] Dept 05/13/23 Office Visit Charlie Abreu MD [facility] 04/16/23 Office Visit Charlie Abreu MD [facility] Showing recent visits within past 365 days and meeting all other requirements Future Appointments No visits were found meeting these conditions. Showing future appointments within next 90 days and meeting all other requirements ICATION DEVELOPMENT TEAM LEAD documented in this encounter Plan of Treatment Not on file documented as of this encounter Goals Goal Patient Goal Type Associated Problems Recent Progress Patient-Stated? Author Find Help In My Community Patient Goals On track( 024 9:36 AM CDT) Yes Iris Christopher, PADMINI Note: Follow Up Date: Week of 11/10/23 - follow-up on any referrals for help I am given Joint Machine Operator will mail food pantry, utility assistance [...] reports she plans to reach out to [employer] in [place] for utility help/food pantry and reach out to [employer] for possible help on car repair. Encouraged patient to use resources as needed. Patient has not yet received [facility] free ride bus pass that SHILPA ENNIS helped her apply for. SHILPA ENNIS emailed contact at [facility] asking about status of bus pass card. 07/03/23 - Patient received her [employer] ride bus pass yesterday. Educated her on new pérez program for [employer] and made email referral to Jasmin Thomas at [facility]. documented as of this encounter Visit Diagnoses Not on filedocumented in this encounter Additional Health Concerns Assessment Noted Time PHQ-9 Depression Total Score: 9 06/02/19 24 2:02 PM APPLICATION DEVELOPMENT TEAM LEAD documented as of this encounter Care Teams Developer Evangelist Relationship Specialty Start Date End Date Charlie Abreu MD [address] [address] PCP - General Family Medicine 05/08/18 Kathrin Cruz MD [address] [place] [address] Consulting Physician Family Medicine 07/04/17 documented as of this encounter
--- OUTSIDE RECORDS SUMMARY | 2024-12-30 16:25 | XMS_ITS | Encounter Summary ---
Author Organization [facility] Address [address] [place] [address] Phone Care Team Providers Care Superintendent Drilling Name Role Phone Kathrin Cruz MD Unavailable [phone] Charlie Abreu MD Primary Care Provider Iris Christopher REGIONAL SALES CONSULTANT Unavailable Unavailab le Reason for Visit * Reason Comments Medication Refill Encounter Details Date Type Department Care Team (Late st Contact Info) Description 12/16/2020 Refill [facility] #2 [place] [id number] Charlie Abreu MD #[address] [address] Medication Refill Social History Tobacco Use Types [...] Total Score: 0 02/23/20 20 2:57 PM SANDING MACHINE TENDER documented as of this encounter Care Teams Superintendent Drilling Relationship Specialty Start Date End Date Charlie Abreu MD #[address] [address] PCP - General Family Medicine 05/08/18 Kathrin Cruz MD [address] [place] [address] Consulting Physician Family Medicine 07/04/17 Iris Christopher, PADMINI [place] [employer]crete Products Installer Leather Production Machine Operator 05/16/23 11/07/23 documented as of this encounter
--- OUTSIDE RECORDS SUMMARY | 2024-12-30 16:25 | XMS_ITS | Encounter Summary ---
Author Organization [facility] Address [address] [place] [address] Phone Care Team Providers Care Equipment Service Engineer Name Role Phone Kathrin Cruz MD Unavailable Charlie Abreu MD Primary Care Provider Iris Christopher HAND CIGAR MAKING SUPERVISOR Unavailable Unavailab le Reason for Visit * Reason Comments Medication Refill Encounter Details Date Type Department Care Team (Late st Contact Info) Description 07/12/2023 Refill [facility] - Family Medicine [facility] #2 [place] [id number] Charlie Abreu MD #[address] [address] Medication Refill Social History Tobacco Use Types Packs/Day Years Used Date Smoking Tobacco: Every Day Cigarettes 1 30 Smokeless Tobacco: Never Alcohol Use Standard Drinks/Week Comments No 0 (1 standard drink = 0.6 oz pur e alcohol) [facility] Utilities Answer Date Recorded In the past 12 months has [employer] electric, gas, oil, or water company threatened [...] week 06/02/2023 How often do you attend anabaptist or mormonism serv ices? Never 06/02/2023 Do you belong to any clubs o r organizations such as anabaptist groups, unions, fraternal or athletic groups, or [...] Total Score - Questions 1-9 12 03/31 [facility] Occupat ional Health - [...] place to sleep or slept in a fci (including now)? No 06/02/2023 Education Answer Date [...] PM CDT Medication(s) ref[facility] and [facility] Med[facility] Refill Standing Order for Pediatricand [...] [place] 10/25/22 Office Visit Ry Shell MD [facility] Mart[facility]nez 09/30/22 Office Visit Charlie Abreu MD [facility] Mart[facility] 09/26/22 Office Visit Tyra Simeon APRN, RETAIL BEAUTY SPECIALIST [facility] Showing recent visits within past 365 days [...] any referrals for help I am given Field Court Researcher will mail food pantry, utility assistance resources [...] reports she plans to reach out to [employer] in [place] for utility help/food pantry and reach out to [facility] for possible help on car repair. Encouraged patient to use resources as needed. Patient has not yet received [employer] free ride bus pass that SHILPA ENNIS helped her apply for. SHILPA ENNIS emailed contact at [facility] asking about status of bus pass card. 07/03/23 - Patient received her [employer] free ride bus pass yesterday. Educated her on new pérez program for [employer] and made email referral to Jasmin Thomas at [facility]. documented as of this encounter Visit Diagnoses Not on filedocumented in this encounter Additional Health Concerns Assessment Noted Time PHQ-9 Depression Total Score: 9 06/02/19 24 2:02 PM PLANT BIOLOGY PROFESSOR documented as of this encounter Care Teams Equipment Service Engineer Relationship Specialty Start Date End Date Charlie Abreu MD #[address] [address] PCP - General Family Medicine 05/08/18 Kathrin Cruz MD [address] [place] [address] Consulting Physician Family Medicine 07/04/17 Iris Christopher LSW [place] Repairer Evaporator Field Court Researcher 05/16/23 11/07/23 documented as of this encounter
--- OUTSIDE RECORDS SUMMARY | 2024-12-30 16:25 | XMS_ITS | Clinical Summary ---
Author Organization [facility] Address [address] [place] [address] Care Team Providers Care Dust Sampler Name Role Phone Charlie Abreu MD Primary Care Provider [phone] Source Comments [facility],non-owned Affiliates and Associated Physician Practices is amultiple site organization consisting of ambulatory clinics and hospital sitesin [place], [place], [place] and [place]. This disclosure is being madepursuant to the Care Everywhere program and may not contain all information available regarding this patient. Last updated 17.[facility] Allergies Active Allergy Reactions Criticality Noted Date [...] on file Legal Sex Female 5:38 PM FLOOR MECHANIC Gender Identity Not on file Sexual Orientation Not on file Last Filed Vital Signs Vital Sign Reading Time Taken Comments Blood Pressure 190/90 04/28/2019 12:55 PM FLOOR MECHANIC Pulse 100 04/28/2019 12:55 PM FLOOR MECHANIC Temperature 36.4 C (97.5 F) 04/28/2019 12:55 PM FLOOR MECHANIC Respiratory Rate 16 05/18/2018 1:58 PM FLOOR MECHANIC Oxygen Saturation 100% 05/18/2018 1:58 PM FLOOR MECHANIC Inhaled Oxygen Concentration - - Weight 73 kg (161 lb) 04/28/2019 12:55 PM FLOOR MECHANIC Height 166.4 cm (5' 5.5) 04/28/2019 12:55 PM CS T Body Mass Index 26.38 04/28/2019 12:55 PM FLOOR MECHANIC Plan of Treatment Health Maintenance Due Date [...] 50+ (1 of 2 - PCV) 07/22/1987 SCREENING FOR DIABETES 12/16/2017 10/14/2014 ZOSTER VACCINE (1 of 2) 2018 DEPRESSION SCREENING 03/31/2024 COVID-19 VACCINE ( season) 2024 INFLUENZA VACCINE (#1) 2024 9, 01/27/2018, 01/08/2017, Additional history exists HIB VACCINE [...] CDT) BUN 10 7 - 26 mg/dL [facility] Creatinine 1.0 0.6 - 1.2 mg/dL [facility] Sodium 138 136 - 145 mmol/L [facility] Potassium 3.6 3.5 - 4.5 mmol/L [facility] Chloride 105 98 - 107 mmol/L [facility] CO2 25 22 - 29 mmol/L [facility] Glucose 87 70 - 115 mg/dL [facility] Calcium 9.3 8.4 - 10.2 mg/dL [facility] Protein Total 6.9 6.0 - 8.3 g/dL [facility] Albumin 3.5 3.4 - 5.0 g/dL [facility] Bilirubin Total 0.3 0.2 - 1.2 mg/dL [facility] Alkaline Phosphatase 72 40 - 150 Units/L [facility] ALT 8 0 - 55 Units/L [facility] AST 13 5 - 34 Units/L [facility] Anion Gap 12 8 - 18 [facility] BUN/Creatinine Ratio 10 7 - 23 [facility] Osmolality Calculated 270 270 - 300 mOsm/kg [facility] Albumin/Globulin Ratio 1.0(L) 1.1 - 2.3 [facility] eGFR 60(L) >60 mL/min/1.7 3 m2 [facility] Blood specimen (specimen) BLOOD SPECIMEN / Unknown 10/14/2014 2:30 PM CDT 10/14/2014 3:01 PM CDT Sugar Rodriguez MD LAB - CHEMISTRY OR DERABLES Final Result Performing Organization Address City/State/[facility] Co de Phone Number [facility] [address] [phone] from Last 3 Months or Most Recently Relevant to Health Maintenance Insurance [facility] Care Teams Dust Sampler Relationship Specialty Start Date End Date Charlie Abreu MD [facility] - General 05/27/18
--- OUTSIDE RECORDS SUMMARY | 2024-12-30 16:25 | XMS_ITS | Encounter Summary ---
Author Organization [facility] Address [address] [place] [address] Phone Care Team Providers Care Envelope Machine Adjuster Name Role Phone Kathrin Cruz MD Unavailable Charlie Abreu MD Primary Care Provider Iris Christopher RESTAURANT SUPERVISOR Unavailable Unavailab le Reason for Visit * Reason Comments Medication Refill Encounter Details Date Type Department Care Team (Late st Contact Info) Description 06/16/2021 Refill [facility] [address]2 [place] [id number] Charlie Abreu MD [address] [address] Medication Refill Social History Tobacco Use Types [...] Total Score: 0 02/23/20 20 2:57 PM NEWSPAPER ILLUSTRATOR documented as of this encounter Care Teams Envelope Machine Adjuster Relationship Specialty Start Date End Date Charlie Abreu MD #[address] [address] PCP - General Family Medicine 05/08/18 Kathrin Cruz MD [address] [place] [address] Consulting Physician Family Medicine 07/04/17 Iris Christopher LSW MD Sieve Repairer [employer] 05/16/23 11/07/23 documented as of this encounter
--- OUTSIDE RECORDS SUMMARY | 2024-12-30 16:25 | XMS_ITS | Encounter Summary ---
Author Organization [facility] Address [facility] [place] [address] Care Team Providers Care Checker Stocker Name Role Phone Charlie Abreu MD Primary Care Provider [phone] Reason for Visit * Reason Onset Date Comments MEDICATION REFILL 07/23/2018 Encounter Details Date Type Department Care Team (Late st Contact Info) Description 07/23/2018 Refill [facility] [address] [place] [address] Briana Larson MD [address] [place] [address] MEDICATION REFILL Social History Tobacco Use Types Packs/Day Years Used Date Smoking Tobacco: Every Day Cigarettes 0.5 30 Smokeless Tobacco: Never Alcohol Use Standard Drinks/Week Comments No 0 (1 standard drink = 0.6 oz pur e alcohol) Comments No Sex and Gender Information Value Date Recorded Sex Assigned at Not on file Legal Sex Female 5:38 PM PROGRAM CONTROL ANALYST Gender Identity Not on file Sexual Orientation [...] on filedocumented in this encounter Care Teams Checker Stocker Relationship Specialty Start Date End Date Charlie Abreu MD PCP - General 05/27/18 documented as of this encounter
--- OUTSIDE RECORDS SUMMARY | 2024-12-30 16:25 | XMS_ITS | Clinical Summary ---
Author Organization [facility] Address [address] [place] [address] Care Team Providers Care Conservation Scientist Name Role Phone Galindo Lopez MD Primary [...] on file Legal Sex Female 9:55 AM FLIGHT CONTROL SPECIALIST Gender Identity Not on file Sexual Orientation [...] (154 lb 12.8 oz) 018 11:26 AM FLIGHT CONTROL SPECIALIST Height 168.9 cm (5' 6.5) 04/09/2017 11 :26 AM FLIGHT CONTROL SPECIALIST Body Mass Index 24.61 04/09/2017 11:26 AM FLIGHT CONTROL SPECIALIST Plan of Treatment Not on file Insurance [facility] Care Teams Conservation Scientist Relationship Specialty Start Date End Date Galindo Lopez MD [address] [place] [address] [address] PCP - General 02/06/18
--- OUTSIDE RECORDS SUMMARY | 2024-12-30 16:25 | XMS_ITS | Encounter Summary ---
Author Organization [facility] Address [address] [place] [address] Phone Care Team Providers Care Master Carpenter Name Role Phone Kathrin Cruz MD Unavailable Charlie Abreu MD Primary Care Provider [phone] Iris Christopher ADOBE LAYER Unavailable Unavailab le Reason for Visit * Reason Comments Medication Refill Encounter Details Date Type Department Care Team (Late st Contact Info) Description 04/25/2023 Refill [facility] - Family Medicine [facility] [address]2 [place] [address] Ry Shell MD [address] [place] [address] Medication Refill Social History Tobacco Use Types Packs/Day Years Used Date Smoking Tobacco: Every Day Cigarettes 1 30 Smokeless Tobacco: Never Alcohol Use Standard Drinks/Week Comments No 0 (1 standard drink = 0.6 oz pur e alcohol) [facility] Utilities Answer Date Recorded In the past 12 months has [employer] electric, gas, oil, or water company threatened to shut off services in your home? Yes 04/15/2023 Social Connection and Isolation Panel Answer Date Recorded Frequency of Communication with Friends and Fami ly Not on file 04/15/2023 Frequency of Social Gatherings with Friends and Family Not on file 04/15/2023 How often do you attend tenriism or christianity serv ices? Never 04/15/2023 Do you belong to any clubs o r organizations such as tenriism groups, unions, fraternal or athletic groups, or [...] Total Score - Questions 1-9 12 03/31 [facility] Occupat ional Health - Occupational [...] place to sleep or slept in a jail (including now)? No 04/15/2023 Education Answer Date [...] Charlie Abreu MD [facility]icio 10/25/22 Office Visit Ry Shell MD [facility] 09/30/22 Office Visit Charlie Abreu MD [facility] 09/26/22 Office Visit Tyra Simeon APRN, RUG DRYING MACHINE OPERATOR [facility] Showing recent visits within past 365 days and meeting all other requirements Future Appointments Date Type Provider Dept 05/13/23 Appointment Charlie Abreu MD [facility] Showing future appointments within next 90 days and meeting all other requirements Passed - No active on record T SALESPERSON documented in this encounter Plan of Treatment Not on file documented as of this encounter Visit Diagnoses Diagnosis Primary hypertension Unspecified essential hypertension documented in this encounter Additional Health Concerns Assessment Noted Time PHQ-9 Depression Total Score: 12 024 2:19 PM FLEET SALESPERSON documented as of this encounter Care Teams Master Carpenter Relationship Specialty Start Date End Date Charlie Abreu MD #[address] [address] PCP - General Family Medicine 05/08/18 Kathrin Cruz MD [address] [place] [address] Consulting Physician Family Medicine 07/04/17 Iris Christopher LSW CO Lugger Vacuum Forming Machine Operator 05/16/23 11/07/23 documented as of this encounter
--- OUTSIDE RECORDS SUMMARY | 2024-12-30 16:26 | XMS_ITS | Encounter Summary ---
Author Organization [facility] Address [address] [place] [address] Phone Care Team Providers Care Machine Gun Mechanic Name Role Phone Kathrin Cruz MD Unavailable Charlie Abreu MD Primary Care Provider [phone] Reason for Visit * Reason Comments Medication Refill Encounter Details Date Type Department Care Team (Late st Contact Info) Description 11/12/2024 Refill [facility] - Family Medicine [facility] [address]2 [place] [address] Charlie Abreu MD [address] [address] Medication Refill Social History Tobacco Use Types Packs/Day Years Used Date Smoking Tobacco: Every Day Cigarettes 1 30 Smokeless Tobacco: Never Alcohol Use Standard Drinks/Week Comments No 0 (1 standard drink = 0.6 oz pur e alcohol) [facility] Utilities Answer Date Recorded In the past 12 months has [employer] electric, gas, oil, or water company threatened [...] often do you attend chur ch or pentecostalism services? Never 05/03/2024 Do you belong to any clubs o r organizations such as shinto groups, unions, fraternal or athletic groups, or [...] Total Score - Questions 1-9 0 07/29 [facility] of Occupat ional Health - [...] place to sleep or slept in a nursing home (including now)? No 06/02/2023 Housing Stability Vital Sign Answer Alejandro e Recorded In the last 12 months, was t here a time when you were not able to pay the mortgage or rent on time? Yes 05/03/2024 In the past 12 months, how m any times have you moved where you were living? 0 05/03/2024 At any time in the past 12 m onths, were you homeless or living in a nursing home (including now)? No 05/03/2024 Education Answer Date [...] Telephone Encounter - Jillian Catherine RN - 11/12/2024 10:35 AM CDT Images from the original note were not included. DULoxetine HCl Dispensed Days Supply Quantity Provider Pharmacy DULOXETINE CAP [address] 11/06/2024 90 180 Capsule Charlie [facility]breu [facility]ULOXETINE [address] 60MG CAPSULES 08/07/2024 90 180 Each Charlie Abreu MD [facility] #.. documented in this encounter Plan of Treatment Not on file documented as of this encounter Goals Goal Patient Goal Type Associated Problems Recent Progress Patient-Stated? Author Find Help In My Community Patient Goals On track( 024 9:36 AM CDT) Yes Iris Christopher, PADMINI Note: Follow Up Date: Week of 11/10/23 - follow-up on any referrals for help I am given SW Assembler Engine will mail food pantry, utility assistance resources [...] reports she plans to reach out to [facility] in [place] for utility help/food pantry and reach out to [facility] for possible help on car repair. Encouraged patient to use resources as needed. Patient has not yet received [employer] free ride bus pass that SHILPA ENNIS helped her apply for. SHILPA ENNIS emailed contact at [facility] asking about status of bus pass card. 07/03/23 - Patient received her [employer] free ride bus pass yesterday. Educated her on new pérez program for [employer] and made email referral to Jasmin Thomas at [facility] [employer]. documented as of this encounter Visit Diagnoses Diagnosis Anxiety Anxiety state, unspecified Depression, unspecified depression type documented in this encounter Additional Health Concerns Assessment Noted Time PHQ-9 Depression Total Score: 0 08/10/19 25 4:28 PM CDT documented as of this encounter Care Teams Machine Gun Mechanic Relationship Specialty Start Date End Date Charlie Abreu MD [address] [address] PCP - General Family Medicine 05/08/18 Kathrin Cruz MD [address] [place] [address] Consulting Physician Family Medicine 07/04/17 documented as of this encounter
[2024-12-30 16:34] VITALS: BP 190/86; PULSE 98; RESP 18; TEMP 36.9; O2SAT 100
--- NOTE | 2024-12-30 16:37 | ED.URI ---
HPI - URI/Sore Throat General Chief Complaint: Upper Respiratory Infection Stated Complaint: Sinus Problem Time Seen by Provider: 12/30/24 16:37 Source: patient, RN notes reviewed and old records reviewed Mode of arrival: ambulatory Limitations: no limitations History of Present Illness HPI Narrative: 54-year-old female presents to the [facility] with 2 week history of facial pain, pressure. Denies any headaches, chest pain or shortness of breath. Reports that she gets multiple sinus infections every year. Has been taking Mucinex and ibuprofen. Unsure if she took her blood pressure medication this morning Related Data Home Medications ?Medication ?Instructions ?Recorded ?Confirmed ?Last Taken ?Type duloxetine 60 mg capsule,delayed 60 mg PO DAILY 09/03/19 04/29/24 Unknown History release losartan 100 1 tablet PO DAILY 02/16/23 04/29/24 Unknown History mg-hydrochlorothiazide 25 mg tablet Allergies Allergy/AdvReac Type Severity Reaction Status Date / Time cephalexin Allergy Anaphylaxis Verified 12/30/24 16:24 meloxicam Allergy Unknown Verified 12/30/24 16:24 Review of Systems Review of Systems: All systems reviewed & are unremarkable except as noted in HPI and below Constitutional: Constitutional: Reports no additional constitutional complaints ENT: Reports as per HPI, Reports sinus pain and Reports sinus pressure Cardiovascular: Cardiovascular: Reports no additional cardiovascular complaints, Denies chest pain and Denies dyspnea Respiratory: Respiratory: Reports no additional respiratory complaints, Denies chest congestion, Denies cough and Denies dyspnea Musculoskeletal: Musculoskeletal: Reports no additional musculoskeletal complaints Integumentary/Breasts: Skin/Breast: Reports system reviewed and no additional complaints, except as docu PMFSH Past Medical History Medical History Fracture of left hand Anxiety and depression Osteoarthritis Surgical History Surgical History S/P rotator cuff repair Social History Social History Smoking packs per day: 0.5 Smoking cigarettes per day: 10.0 Years smoked: 30 Smoking pack-years: 15.00 Smoking status: Current every day smoker Tobacco type: cigarettes Living arrangements: with family Comments At the time of my signature, I reviewed and agree with the nursing past medical, surgical, social, and family history. There is no relevant family history pertinent to the patient complaint. Exam Const: General: cooperative, healthy appearing, comfortable, no acute distress, well developed, alert and well nourished Nutritional Appearance: well nourished Orientation/consciousness: patient oriented x3 Limitations: no limitations HENMT: Head: normal to inspection Ears: hearing grossly normal bilaterally, external ears normal, TM's normal bilaterally, EAC's normal, mastoids normal and no periauricular adenopathy Face and sinus: normal facial exam, face symmetric and sinus tenderness frontal and maxillary Mouth: Yes Normal oral and palatal mucosa present, Yes lip normal, Yes tongue normal and Yes moist mucous membranes Throat: posterior oropharynx normal, uvula midline and no uvular edema Eyes: General: appearance normal, both eyes and all related structures Alignment and Position: alignment normal Neck: Neck: normal visual inspection, full ROM, no lymphadenopathy and no meningeal signs Chest: Chest palpation & inspection: normal inspection of the chest Resp: Effort & Inspection: normal respiratory effort and able to speak in complete sentences Auscultation: clear to auscultation bilaterally, no crackles, no rales, no rhonchi and no wheezes Cardio: Rate: regular rate Skin: General skin exam: normal color and no rashes or lesions noted Neuro: General: patient oriented x3, gait normal, moves all extremities and no meningeal signs Cognition (Neuro): normal cognition Speech: normal speech Gait exam (Neuro): Normal gait present Extrem: General: normal to inspection, full ROM, capillary refill normal and normal gait Psych: Appearance: grossly normal and well kempt Mental Status: mental status grossly normal Speech and movement: Normal speech and movement present and Clear speech present Affect: normal affect Attitude: cooperative Course Course Level of Care: Express Care Visit Vital Signs Vital signs: Vital Signs Temperature 98.5 F 12/30/24 16:34 Pulse Rate 98 12/30/24 16:34 Respiratory Rate 18 12/30/24 16:34 Blood Pressure 190/86 H 12/30/24 16:34 Pulse Oximetry 100 12/30/24 16:34 Oxygen Delivery Room Air 12/30/24 16:34 Temperature 98.5 F 12/30/24 16:34 Pulse Rate 98 12/30/24 16:34 Respiratory Rate 18 12/30/24 16:34 Blood Pressure 190/86 H 10/02/25 16:34 Pulse Oximetry 100 12/30/24 16:34 Oxygen Delivery Room Air 12/30/24 16:34 Reviewed MDM - URI/Sore Throat MDM Narrative Medical decision making narrative: Patient sitting comfortably in exam room. Patient is nontoxic, vitals stable. Patient reports sinus congestion, facial pressure for 2 weeks. Denies any headaches, chest pain, shortness of breath. Has been taking Mucinex and ibuprofen with no relief. Patient does report she can take amoxicillin without issue. Patient appropriate for outpatient treatment with close follow-up Discharge instructions reviewed with patient, as well as provided in writing per nursing staff. The instructions also include specific and strict return/GO TO THE ER as well as f/u information. All questions have been answered, and the patient deny any further questions with discharge and discharge plan. Some parts of this dictation were generated by voice recognition software and may contain typographical and/or grammatical inaccuracies. Differential Diagnosis Differential diagnosis: Likely upper respiratory infection, otitis media, sinusitis, viral infection, influenza and pharyngitis Critical Care Time Critical Care Time Critical Care Time: No Discharge Plan Discharge Clinical Impression: Sinusitis Qualifiers: Sinusitis location: frontal Chronicity: acute Recurrence: non-recurrent Qualified Code(s): J01.10 - Acute frontal sinusitis, unspecified Patient Disposition: Home Condition: Stable Instructions: Antibiotic Form Additional Instructions: Today your blood pressure was 190/86. Please follow-up with your primary care provider within the next week to have this rechecked. It is very important to treat your symptoms. Drink plenty of water, Gatorade, Pedialyte, ice pops or Jell-O. -Alternate Tylenol and Motrin per package directions for fever or pain. You can alternate every 4 hours -Antihistamine medication such as Zyrtec/Claritin/Jaquelin during the day can help improve symptoms. -doing daily nasal irrigations can help relieve pressure your sinuses. Things like a Neti pot -Use Flonase twice a day for 5 days then daily to help reduce the inflammation and dry up your sinuses. -You can also use Mucinex. Be sure to drink plenty of water with this medication at least 8 ounces with every dose and it is important to drink 8 to 10 glasses of water per day. Water is a natural decongestant -Eat and drink things that are easy to swallow, like tea or soup, or popsicles. -Oral rinses such as: Salt water gargles and/or may use topical anesthetic (eg. Chloraseptic spray) or lozenges to relieve dryness or throat pain). -Frequent hand washing or hand crap game box person is one of the best ways to prevent spread of infection. -Using a vaporizer or humidifier at night will also help thin secretions and help with coughing up phlegm. -Follow up with primary care provider in 7-10 days if condition is not improving - For new or worsening symptoms go directly to the nearest ER Patient Language: Citizen Of [place] Prescriptions: New amoxicillin-pot clavulanate 875-125 mg tablet 1 tablet PO Q12H Qty: 14 0RF No Action duloxetine 60 mg capsule,delayed release(DR/EC) 60 mg PO DAILY losartan-hydrochlorothiazide 100-25 mg Tablet 1 tablet PO DAILY Follow-up/Referrals: Lois,Charlie Victoria MD [Primary Care Provider] - 2 Weeks Clinical Impression: Sinusitis Time of Disposition: 16:58
== END 2024-12-30 17:04 | disposition home or self-care (01) ==
PROVIDERS: Emergency Provider Nurse Practitioner; PCP Internal Medicine
DX: J01.10 Acute frontal sinusitis, unspecified (principal); F17.210 Nicotine dependence, cigarettes, uncomplicated
CPT/HCPCS: 99213; G0463